=== PATIENT | male | born 1955 | race African-American/Black ===

== ENCOUNTER 2017-12-19 15:49 | Emergency (ER) | payer OTHER ==
[~2017-12-19] VITALS: Ht 180.3 cm; Wt 86.0 kg
[~2017-12-19 15:49] MED LIST: DILA100C PO; HTN MEDS; PHEN100C PO
[2017-12-19 16:04] VITALS: BP 139/77; PULSE 89; RESP 17; TEMP 97.7; O2SAT 98
[2017-12-19] MEDS ORDERED: DILA100C PO (16:08)
[2017-12-19] MEDS ORDERED: SODIUM CHLOR 0.9% 1000 ML INJ 1,000 ML IV ONE (16:26)
[2017-12-19] MEDS ORDERED: SODIUM CHLORIDE 0.9% FLUSH 10 ML FLUSH IVF PRN (16:30)
[2017-12-19 16:35] VITALS: RESP 17; O2SAT 98
--- NOTE | 2017-12-19 16:54 | PD ---
HPI Chief Complaint: Syncope/Near-Syncope Time Seen by Provider: 16:05 Travel History International Travel<30 days: No Contact w/Intl Traveler<30days: No Traveled to known affect area: No History of Present Illness HPI Patient is a 62-year-old male presenting to the emergency department for evaluation of a syncopal episode. Patient states that he was smoking marijuana while walking to the store to buy scratch off tickets, when he got to the counter he states he passed out. He reports feeling fine prior to the episode. He denied any chest pain, shortness of breath, headache, dizziness. He currently has no complaints. He states that he did not want to come here. Symptom onset is unknown, symptoms may be exacerbated by marijuana. 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) Seizures: Yes Tetanus Vaccination: > 5 Years Past Surgical History Surgical History: No Previous Surgery Coronary Artery Bypass Graft: No Social History Alcohol Use: Yes (6 BEERS DAILY) Tobacco Use: Yes (1/2 PPD) Substance Use: Yes (Marijuana, COCAINE ) Allergies-Medications (Allergen,Severity, Reaction): Coded Allergies: No Known Allergies (Verified Adverse Reaction, Unknown, 12/19/17) Reported Meds & Prescriptions Reported Meds & Active Scripts Active Reported Dilantin (Phenytoin Extended) 100 Mg Cap 100 Mg PO TID Review of Systems Except as stated in HPI: all other systems reviewed are Neg Neurologic: Positive: Syncope Physical Exam Narrative GENERAL: Thin, well-developed, alert -[place] male. Presenting in no acute distress. SKIN: Warm and dry. HEAD: Atraumatic. Normocephalic. EYES: Pupils equal and round. No scleral icterus. No injection or drainage. ENT: No nasal bleeding or discharge. Mucous membranes pink and moist. NECK: Trachea midline. No JVD. CARDIOVASCULAR: Regular rate and rhythm. RESPIRATORY: No accessory muscle use. Clear to auscultation. Breath sounds equal bilaterally. GASTROINTESTINAL: Abdomen soft, non-tender, nondistended. Hepatic and splenic margins not palpable. MUSCULOSKELETAL: Extremities without clubbing, cyanosis, or edema. No obvious deformities. NEUROLOGICAL: Awake and alert. No obvious cranial nerve deficits. Motor grossly within normal limits. Five out of 5 muscle strength in the arms and legs. Normal speech. PSYCHIATRIC: Appropriate mood and affect; insight and judgment normal. Data Data Last Documented VS Vital Signs Date Time Temp Pulse Resp B/P (MAP) Pulse Ox O2 Delivery O2 Flow Rate FiO2 12/19/17 19:17 75 18 145/84 (104) 96 Room Air 12/19/17 17:37 97.8 Orders Orders Electrocardiogram (12/19/17 16:26) Complete Blood Count With Diff (12/19/17 16:26) Comprehensive Metabolic Panel (12/19/17 16:26) Magnesium (Mg) (12/19/17 16:26) Ckmb (Isoenzyme) Profile (12/19/17 16:26) Troponin I (12/19/17 16:26) Act Partial Throm Time (Ptt) (12/19/17 16:26) Prothrombin Time / Inr (Pt) (12/19/17 16:26) Chest, Single Ap (12/19/17 16:26) Ecg Monitoring (12/19/17 16:26) Iv Access Insert/Monitor (12/19/17 16:26) Oximetry (12/19/17 16:26) Sodium Chloride 0.9% Flush (Ns Flush) (12/19/17 16:30) Sodium Chlor 0.9% 1000 Ml Inj (Ns 1000 M (12/19/17 16:26) Alcohol (Ethanol) (12/19/17 16:26) Drug Screen, Random Urine (12/19/17 16:26) Orthostatic Vital Signs (12/19/17 16:54) CKMB (12/19/17 15:00) CKMB% (12/19/17 15:00) Admit Order (Ed Use Only) (12/19/17 19:17) Sodium Chlor 0.9% 1000 Ml Inj (Ns 1000 M (12/19/17 20:00) Sodium Chloride 0.9% Flush (Ns Flush) (12/19/17 19:30) Sodium Chloride 0.9% Flush (Ns Flush) (12/19/17 21:00) Ondansetron Inj (Zofran Inj) (12/19/17 19:30) Acetaminophen (Tylenol) (12/19/17 19:30) Acetamin-Hydrocod 325-5 Mg ([place] 5-325 (12/19/17 19:30) Acetamin-Hydrocod 325-10 Mg ([place] 10-32 (12/19/17 19:30) Docusate Sodium-Senna (Candace-Colace) (12/19/17 21:00) Magnesium Hydroxide Liq (Milk Of Magnesi (12/19/17 19:30) Sennosides (Senokot) (12/19/17 19:30) Bisacodyl Supp (Dulcolax Supp) (12/19/17 19:30) Lactulose Liq (Lactulose Liq) (12/19/17 19:30) Echo 2d Comp With Doppler (12/19/17 ) Lorazepam Inj (Ativan Inj) (12/19/17 19:30) Aspirin Ec (Ecotrin Ec) (12/20/17 09:00) Pravastatin (Pravachol) (12/20/17 09:00) Phenytoin (Dilantin) (12/20/17 09:00) Labs Laboratory Tests Test 12/19/17 15:00 White Blood Count 4.6 TH/MM3 Red Blood Count 4.64 MIL/MM3 Hemoglobin 14.1 GM/DL Hematocrit 42.4 % Mean Corpuscular Volume 91.3 FL Mean Corpuscular Hemoglobin 30.4 PG Mean Corpuscular Hemoglobin Concent 33.3 % Red Cell Distribution Width 14.3 % Platelet Count 155 TH/MM3 Mean Platelet Volume 8.1 FL Neutrophils (%) (Auto) 61.2 % Lymphocytes (%) (Auto) 22.9 % Monocytes (%) (Auto) 15.5 % Eosinophils (%) (Auto) 0.0 % Basophils (%) (Auto) 0.4 % Neutrophils # (Auto) 2.8 TH/MM3 Lymphocytes # (Auto) 1.1 TH/MM3 Monocytes # (Auto) 0.7 TH/MM3 Eosinophils # (Auto) 0.0 TH/MM3 Basophils # (Auto) 0.0 TH/MM3 CBC Comment DIFF FINAL Differential Comment Prothrombin Time 11.5 SEC Prothromb Time International Ratio 1.1 RATIO Activated Partial Thromboplast Time 21.6 SEC Blood Urea Nitrogen 42 MG/DL Creatinine 2.80 MG/DL Random Glucose 128 MG/DL Total Protein 7.5 GM/DL Albumin 3.4 GM/DL Calcium Level 8.2 MG/DL Magnesium Level 1.8 MG/DL Alkaline Phosphatase 83 U/L Aspartate Amino Transf (AST/SGOT) 45 U/L Alanine Aminotransferase (ALT/SGPT) 23 U/L Total Bilirubin 0.8 MG/DL Sodium Level 128 MEQ/L Potassium Level 4.3 MEQ/L Chloride Level 92 MEQ/L Carbon Dioxide Level 25.3 MEQ/L Anion Gap 11 MEQ/L Estimat Glomerular Filtration Rate 28 ML/MIN Total Creatine Kinase 317 U/L Creatine Kinase MB 0.7 NG/ML Creatine Kinase MB % 0.2 % Troponin I 0.05 NG/ML Urine Opiates Screen NEG Urine Barbiturates Screen NEG Urine Amphetamines Screen NEG Urine Benzodiazepines Screen NEG Urine Cocaine Screen POS Urine Cannabinoids Screen POS Ethyl Alcohol Level LESS THAN 3 MG/DL MDM Medical Decision Making Medical Screen Exam Complete: Yes Emergency Medical Condition: Yes Medical Record Reviewed: Yes Interpretation(s) Last Impressions Chest X-Ray 12/19/17 1626 Signed Impressions: Service Date/Time: Tuesday, December 19, 2017 16:46 - CONCLUSION: No acute disease. Pritesh Razo MD Laboratory Tests Test 12/19/17 15:00 White Blood Count 4.6 TH/MM3 Red Blood Count 4.64 MIL/MM3 Hemoglobin 14.1 GM/DL Hematocrit 42.4 % Mean Corpuscular Volume 91.3 FL Mean Corpuscular Hemoglobin 30.4 PG Mean Corpuscular Hemoglobin Concent 33.3 % Red Cell Distribution Width 14.3 % Platelet Count 155 TH/MM3 Mean Platelet Volume 8.1 FL Neutrophils (%) (Auto) 61.2 % Lymphocytes (%) (Auto) 22.9 % Monocytes (%) (Auto) 15.5 % Eosinophils (%) (Auto) 0.0 % Basophils (%) (Auto) 0.4 % Neutrophils # (Auto) 2.8 TH/MM3 Lymphocytes # (Auto) 1.1 TH/MM3 Monocytes # (Auto) 0.7 TH/MM3 Eosinophils # (Auto) 0.0 TH/MM3 Basophils # (Auto) 0.0 TH/MM3 CBC Comment DIFF FINAL Differential Comment Prothrombin Time 11.5 SEC Prothromb Time International Ratio 1.1 RATIO Activated Partial Thromboplast Time 21.6 SEC Blood Urea Nitrogen 42 MG/DL Creatinine 2.80 MG/DL Random Glucose 128 MG/DL Total Protein 7.5 GM/DL Albumin 3.4 GM/DL Calcium Level 8.2 MG/DL Magnesium Level 1.8 MG/DL Alkaline Phosphatase 83 U/L Aspartate Amino Transf (AST/SGOT) 45 U/L Alanine Aminotransferase (ALT/SGPT) 23 U/L Total Bilirubin 0.8 MG/DL Sodium Level 128 MEQ/L Potassium Level 4.3 MEQ/L Chloride Level 92 MEQ/L Carbon Dioxide Level 25.3 MEQ/L Anion Gap 11 MEQ/L Estimat Glomerular Filtration Rate 28 ML/MIN Total Creatine Kinase 317 U/L Creatine Kinase MB 0.7 NG/ML Creatine Kinase MB % 0.2 % Troponin I 0.05 NG/ML Urine Opiates Screen NEG Urine Barbiturates Screen NEG Urine Amphetamines Screen NEG Urine Benzodiazepines Screen NEG Urine Cocaine Screen POS Urine Cannabinoids Screen POS Ethyl Alcohol Level LESS THAN 3 MG/DL Vital Signs Date Time Temp Pulse Resp B/P (MAP) Pulse Ox O2 Delivery O2 Flow Rate FiO2 12/19/17 16:05 89 17 97 Room Air 12/19/17 16:04 97.7 89 17 139/77 (97) 98 Differential Diagnosis Cardiac arrhythmia versus metabolic abnormality versus intoxication versus other Narrative Course Patient is well-appearing 62-year-old male presenting for evaluation after a witnessed syncopal episode. Vital signs are stable. Labs and imaging ordered and pending. Chest x-ray shows no acute disease CBC is unremarkable Chemistry with a sodium of 128, BUN/creatinine 42/2.8, calcium 8.2, CK 317, troponin 0 0.05 Urine drug screen is positive for cocaine and marijuana Orthostatic vital signs are negative. Patient was given a liter of IV fluids. Patient will be admitted for acute renal insufficiency, syncope, elevated troponin. Plan of care discussed with my attending physician. Dr. Pretty accepted admit. Admit orders placed. After patient was initially admitted, he stated that he did not want to stay. Patient Jung Perez has decided to leave the hospital against medical advice. This patient has the capacity to refuse care and understands the risks of leaving, including permanent disability and/or , and has had an opportunity to ask questions about his condition. The patient has been informed that he may return for care at any time, and follow up has been arranged/ advised. Diagnosis Primary Impression: Left against medical advice Admitting Information Admitting Physician Requests: Observation Kaylie Caicedo Dec 19, 2017 16:54
--- NOTE | 2017-12-19 17:11 | RADRPT ---
EXAM DATE/TIME: 12/19/2017 16:46 [facility] COMPARISON: CHEST SINGLE AP, May 27, 2015, 19:03. INDICATIONS : Shortness of breath. Syncope. MEDICAL HISTORY : None. SURGICAL HISTORY : None. ENCOUNTER: Initial ACUITY: 1 day PAIN SCORE: 6/10 LOCATION: Bilateral chest FINDINGS: A single view of the chest demonstrates the lungs to be symmetrically aerated without evidence of mas s, infiltrate or effusion. The cardiomediastinal contours are unremarkable. Osseous structures are intact. CONCLUSION: No acute disease. Pritesh Razo MD on December 19, 2017 at 17:09 Board Certified Radiologist. This report was verified electronically.
[2017-12-19 17:18] LABS: AUTOMATED NEUTROPHIL # 2.8 TH/MM3 (1.8-7.7); BASOPHIL % 0.4 % (0.0-2.0); HEMATOCRIT 42.4 % (39.0-51.0); HEMOGLOBIN 14.1 GM/DL (13.0-17.0); LYMPH % 22.9 % (9.0-44.0); LYMPHOCYTE # 1.1 TH/MM3 (1.0-4.8); MEAN CELL VOLUME 91.3 FL (80.0-100.0); MEAN CORPUSCULAR HEMOGLOBIN 30.4 PG (27.0-34.0); MEAN CORPUSCULAR HGB CONC 33.3 % (32.0-36.0); MEAN PLATELET VOLUME 8.1 FL (7.0-11.0); MONO % 15.5 % (0.0-8.0); MONOCYTE # 0.7 TH/MM3 (0-0.9); NEUT % 61.2 % (16.0-70.0); PLATELET COUNT 155 TH/MM3 (150-450); RED BLOOD COUNT 4.64 MIL/MM3 (4.50-5.90); RED CELL DISTRIBUTION WIDTH 14.3 % (11.6-17.2); WHITE BLOOD COUNT 4.6 TH/MM3 (4.0-11.0)
[2017-12-19 17:25] LABS: INTERNATIONAL NORMALIZED RATIO 1.1 RATIO; PROTHROMBIN TIME - PATIENT 11.5 SEC (9.8-11.6)
[2017-12-19 17:30] VITALS: BP_SYST 145; BP_SYST 151; BP_SYST 156; BP_DIAS 80; BP_DIAS 90; BP_DIAS 95; RESP 15; RESP 16
[2017-12-19 17:37] VITALS: BP 161/91; PULSE 80; RESP 18; TEMP 97.8; O2SAT 100
[2017-12-19 17:41] LABS: ALBUMIN 3.4 GM/DL (3.4-5.0); AST (GOT) 45 U/L (15-37); BICARBONATE 25.3 MEQ/L (21.0-32.0); BLOOD UREA NITROGEN 42 MG/DL (7-18); CALCIUM 8.2 MG/DL (8.5-10.1); CHLORIDE 92 MEQ/L (98-107); GLOMERULAR FILTRATION RATE 28 ML/MIN (>89); GLUCOSE,RANDOM 128 MG/DL (74-106); MAGNESIUM 1.8 MG/DL (1.5-2.5); SODIUM (NA) 128 MEQ/L (136-145)
[2017-12-19 17:42] LABS: ALT (GPT) 23 U/L (12-78)
[2017-12-19 17:45] LABS: ALKALINE PHOSPHATASE 83 U/L (45-117); TOTAL BILIRUBIN ADULT 0.8 MG/DL (0.2-1.0); TOTAL PROTEIN 7.5 GM/DL (6.4-8.2); TROPONIN I 0.05 NG/ML (0.02-0.05)
[2017-12-19 19:17] VITALS: BP 145/84; PULSE 75; RESP 18; O2SAT 96
--- NOTE | 2017-12-19 19:22 | PD ---
Physical Exam Date Seen by Provider: Dec 19, 2017 Narrative This patient presents to us following a syncopal episode which occurred while he was smoking some marijuana. Data Data Last Documented VS Vital Signs Date Time Temp Pulse Resp B/P (MAP) Pulse Ox O2 Delivery O2 Flow Rate FiO2 12/19/17 19:17 75 18 145/84 (104) 96 Room Air 12/19/17 17:37 97.8 Orders Orders Electrocardiogram (12/19/17 16:26) Complete Blood Count With Diff (12/19/17 16:26) Comprehensive Metabolic Panel (12/19/17 16:26) Magnesium (Mg) (12/19/17 16:26) Ckmb (Isoenzyme) Profile (12/19/17 16:26) Troponin I (12/19/17 16:26) Act Partial Throm Time (Ptt) (12/19/17 16:26) Prothrombin Time / Inr (Pt) (12/19/17 16:26) Chest, Single Ap (12/19/17 16:26) Ecg Monitoring (12/19/17 16:26) Iv Access Insert/Monitor (12/19/17 16:26) Oximetry (12/19/17 16:26) Sodium Chloride 0.9% Flush (Ns Flush) (12/19/17 16:30) Sodium Chlor 0.9% 1000 Ml Inj (Ns 1000 M (12/19/17 16:26) Alcohol (Ethanol) (12/19/17 16:26) Drug Screen, Random Urine (12/19/17 16:26) Orthostatic Vital Signs (12/19/17 16:54) CKMB (12/19/17 15:00) CKMB% (12/19/17 15:00) Admit Order (Ed Use Only) (12/19/17 19:17) Labs Laboratory Tests Test 12/19/17 15:00 White Blood Count 4.6 TH/MM3 Red Blood Count 4.64 MIL/MM3 Hemoglobin 14.1 GM/DL Hematocrit 42.4 % Mean Corpuscular Volume 91.3 FL Mean Corpuscular Hemoglobin 30.4 PG Mean Corpuscular Hemoglobin Concent 33.3 % Red Cell Distribution Width 14.3 % Platelet Count 155 TH/MM3 Mean Platelet Volume 8.1 FL Neutrophils (%) (Auto) 61.2 % Lymphocytes (%) (Auto) 22.9 % Monocytes (%) (Auto) 15.5 % Eosinophils (%) (Auto) 0.0 % Basophils (%) (Auto) 0.4 % Neutrophils # (Auto) 2.8 TH/MM3 Lymphocytes # (Auto) 1.1 TH/MM3 Monocytes # (Auto) 0.7 TH/MM3 Eosinophils # (Auto) 0.0 TH/MM3 Basophils # (Auto) 0.0 TH/MM3 CBC Comment DIFF FINAL Differential Comment Prothrombin Time 11.5 SEC Prothromb Time International Ratio 1.1 RATIO Activated Partial Thromboplast Time 21.6 SEC Blood Urea Nitrogen 42 MG/DL Creatinine 2.80 MG/DL Random Glucose 128 MG/DL Total Protein 7.5 GM/DL Albumin 3.4 GM/DL Calcium Level 8.2 MG/DL Magnesium Level 1.8 MG/DL Alkaline Phosphatase 83 U/L Aspartate Amino Transf (AST/SGOT) 45 U/L Alanine Aminotransferase (ALT/SGPT) 23 U/L Total Bilirubin 0.8 MG/DL Sodium Level 128 MEQ/L Potassium Level 4.3 MEQ/L Chloride Level 92 MEQ/L Carbon Dioxide Level 25.3 MEQ/L Anion Gap 11 MEQ/L Estimat Glomerular Filtration Rate 28 ML/MIN Total Creatine Kinase 317 U/L Creatine Kinase MB 0.7 NG/ML Creatine Kinase MB % 0.2 % Troponin I 0.05 NG/ML Urine Opiates Screen NEG Urine Barbiturates Screen NEG Urine Amphetamines Screen NEG Urine Benzodiazepines Screen NEG Urine Cocaine Screen POS Urine Cannabinoids Screen POS Ethyl Alcohol Level LESS THAN 3 MG/DL MDM Supervised Visit with MONET: Yes Narrative Course I, Dr. Schultz, have reviewed the advance practice practitioner's documentation and am in agreement, met with the patient face to face, made the diagnosis, and the medical decision making was done by me. *My assessment and Findings: EKG shows a normal sinus rhythm. CBC & BMP Diagram 12/19/17 15:00 Total Protein 7.5, Albumin 3.4, Calcium Level 8.2 L, Magnesium Level 1.8, Alkaline Phosphatase 83, Aspartate Amino Transf (AST/SGOT) 45 H, Alanine Aminotransferase (ALT/SGPT) 23, Total Bilirubin 0.8 He does not have any recent old labs for comparison. However, he does have an old creatinine which was also elevated at about 2.3. But, his BUN has doubled. The patient has been awake and alert here. Please see Kaylie Kwong NP's note for results of laboratory and radiographic evaluation, ED course, final diagnosis and disposition Sofya Schultz MD Dec 19, 2017 19:22
--- NOTE | 2017-12-19 19:23 | HHI.HP ---
[facility] Service [facility] Primary Care Physician Santosh Hankins MD Admission Diagnosis SYNCOPE, ELEVATED TROPONIN, ACUTE RENAL INSUFFICIENCY Diagnoses: Travel History International Travel<30 Days: No Contact w/Intl Traveler <30 Da: No Traveled to Known Affected Are: No Past Family Social History Allergies: Coded Allergies: No Known Allergies (Verified Adverse Reaction, Unknown, 12/19/17) Physical Exam Vital Signs Vital Signs Date Time Temp Pulse Resp B/P (MAP) Pulse Ox O2 Delivery O2 Flow Rate FiO2 12/19/17 19:17 75 18 145/84 (104) 96 Room Air 12/19/17 17:37 97.8 80 18 161/91 (114) 100 Room Air 12/19/17 17:30 80 15 145/80 (101) 74 16 151/90 (110) 156/95 (115) 12/19/17 16:35 17 98 Room Air 12/19/17 16:05 89 17 97 Room Air 12/19/17 16:04 97.7 89 17 139/77 (97) 98 Physical Exam GENERAL: This is a well-nourished, well-developed patient, in no apparent distress. SKIN: No rashes, ecchymoses or lesions. Cool and dry. HEAD: Atraumatic. Normocephalic. No temporal or scalp tenderness. EYES: Pupils equal round and reactive. Extraocular motions intact. No scleral icterus. No injection or drainage. ENT: Nose without bleeding, purulent drainage or septal hematoma. Throat without erythema, tonsillar hypertrophy or exudate. Uvula midline. Airway patent. NECK: Trachea midline. No JVD or lymphadenopathy. Supple, nontender, no meningeal signs. CARDIOVASCULAR: Regular rate and rhythm without murmurs, gallops, or rubs. RESPIRATORY: Clear to auscultation. Breath sounds equal bilaterally. No wheezes , rales, or rhonchi. GASTROINTESTINAL: Abdomen soft, non-tender, nondistended. No hepato-splenomegaly , or palpable masses. No guarding. MUSCULOSKELETAL: Extremities without clubbing, cyanosis, or edema. No joint tenderness, effusion, or edema noted. No calf tenderness. Negative Homans sign bilaterally. NEUROLOGICAL: Awake and alert. Cranial nerves II through XII intact. Motor and sensory grossly within normal limits. Five out of 5 muscle strength in all muscle groups. Normal speech. Laboratory Laboratory Tests Test 12/19/17 15:00 White Blood Count 4.6 Red Blood Count 4.64 Hemoglobin 14.1 Hematocrit 42.4 Mean Corpuscular Volume 91.3 Mean Corpuscular Hemoglobin 30.4 Mean Corpuscular Hemoglobin Concent 33.3 Red Cell Distribution Width 14.3 Platelet Count 155 Mean Platelet Volume 8.1 Neutrophils (%) (Auto) 61.2 Lymphocytes (%) (Auto) 22.9 Monocytes (%) (Auto) 15.5 Eosinophils (%) (Auto) 0.0 Basophils (%) (Auto) 0.4 Neutrophils # (Auto) 2.8 Lymphocytes # (Auto) 1.1 Monocytes # (Auto) 0.7 Eosinophils # (Auto) 0.0 Basophils # (Auto) 0.0 CBC Comment DIFF FINAL Differential Comment Prothrombin Time 11.5 Prothromb Time International Ratio 1.1 Activated Partial Thromboplast Time 21.6 Blood Urea Nitrogen 42 Creatinine 2.80 Random Glucose 128 Total Protein 7.5 Albumin 3.4 Calcium Level 8.2 Magnesium Level 1.8 Alkaline Phosphatase 83 Aspartate Amino Transf (AST/SGOT) 45 Alanine Aminotransferase (ALT/SGPT) 23 Total Bilirubin 0.8 Sodium Level 128 Potassium Level 4.3 Chloride Level 92 Carbon Dioxide Level 25.3 Anion Gap 11 Estimat Glomerular Filtration Rate 28 Total Creatine Kinase 317 Creatine Kinase MB 0.7 Creatine Kinase MB % 0.2 Troponin I 0.05 Urine Opiates Screen NEG Urine Barbiturates Screen NEG Urine Amphetamines Screen NEG Urine Benzodiazepines Screen NEG Urine Cocaine Screen POS Urine Cannabinoids Screen POS Ethyl Alcohol Level LESS THAN 3 Result Diagram: 12/19/17 1500 12/19/17 1500 Caprini VTE Risk Assessment Caprini Risk Assessment Model Point Value = 1 Point Value = 2 Point Value = 3 Point Value = 5 Age 41-60 Minor surgery BMI > 25 kg/m2 Swollen legs Varicose veins or History of unexplained or recurrent spontaneous Oral contraceptives or hormone replacement Sepsis (< 1 month) Serious lung disease, including pneumonia (< 1 month) Abnormal pulmonary function Acute myocardial infarction Congestive heart failure (< 1 month) History of inflammatory bowel disease Medical patient at bed rest Age 61-74 Arthroscopic surgery Major open surgery (> 45 min) Laparoscopic surgery (> 45 min) Malignancy Confined to bed (> 72 hours) Immobilizing plaster cast Central venous access Age >= 75 History of VTE Family history of VTE Factor V Leiden Prothrombin [id number] Lupus anticoagulant Anticardiolipin antibodies Elevated serum homocysteine Heparin-induced thrombocytopenia Other congenital or acquired thrombophilia Stroke (< 1 month) Elective arthroplasty Hip, pelvis, or leg fracture Acute spinal cord injury (< 1 month) Prophylaxis Regimen Total Risk Factor Score Risk Level Prophylaxis Regimen 0-1 Low Early ambulation 2 Moderate Order ONE of the following: *Sequential Compression Device (SCD) *Heparin 5000 units SQ BID 3-4 Higher Order ONE of the following medications: *Heparin 5000 units SQ TID *Enoxaparin/Lovenox 40 mg SQ daily (WT < 150 kg, CrCl > 30 mL/min) *Enoxaparin/Lovenox 30 mg SQ daily (WT < 150 kg, CrCl > 10-29 mL/min) *Enoxaparin/Lovenox 30 mg SQ BID (WT < 150 kg, CrCl > 30 mL/min) AND/OR *Sequential Compression Device (SCD) 5 or more Highest Order ONE of the following medications: *Heparin 5000 units SQ TID (Preferred with Epidurals) *Enoxaparin/Lovenox 40 mg SQ daily (WT < 150 kg, CrCl > 30 mL/min) *Enoxaparin/Lovenox 30 mg SQ daily (WT < 150 kg, CrCl > 10-29 mL/min) *Enoxaparin/Lovenox 30 mg SQ BID (WT < 150 kg, CrCl > 30 mL/min) AND *Sequential Compression Device (SCD) Aundrea Pretty MD Dec 19, 2017 19:23
[2017-12-19] MEDS ORDERED: ONDANSETRON HCL 4 MG/2 ML VIAL IVP PRN (19:30)
[2017-12-19] MEDS ORDERED: ACETAMINOPHEN 325 MG TAB PO PRN (19:30)
[2017-12-19] MEDS ORDERED: ACETAMINOPHEN/HYDROcodone 325 MG/5 MG TAB PO PRN (19:30)
[2017-12-19] MEDS ORDERED: ACETAMINOPHEN/HYDROcodone 325 MG/10 MG TAB PO PRN (19:30)
[2017-12-19] MEDS ORDERED: BISACODYL 10 MG SUPP RECTAL PRN (19:30)
[2017-12-19] MEDS ORDERED: LACTULOSE SYRUP 20 GM/30 ML CUP PO PRN (19:30)
[2017-12-19] MEDS ORDERED: SODIUM CHLORIDE 0.9% FLUSH 10 ML FLUSH IV FLUSH PRN (19:30)
[2017-12-19] MEDS ORDERED: MAGNESIUM HYDROXIDE SUSP 30 ML CUP PO PRN (19:30)
[2017-12-19] MEDS ORDERED: SENNOSIDES 8.6 MG TAB PO PRN (19:30)
[2017-12-19] MEDS ORDERED: LORazepam 2 MG/ML VIAL IV PUSH PRN (19:30)
[2017-12-19] MEDS ORDERED: SODIUM CHLOR 0.9% 1000 ML INJ 1,000 ML IV SCH (20:00)
[2017-12-19] MEDS ORDERED: SODIUM CHLORIDE 0.9% FLUSH 10 ML FLUSH IV FLUSH SCH (21:00)
[2017-12-19] MEDS ORDERED: DOCUSATE SODIUM 50 MG/SENNA 8.6 MG TAB PO SCH (21:00)
[2017-12-20] MEDS ORDERED: PHENYTOIN SODIUM 100 MG CAP PO SCH (09:00)
[2017-12-20] MEDS ORDERED: PRAVASTATIN SOD 40 MG TAB PO SCH (09:00)
[2017-12-20] MEDS ORDERED: ASPIRIN EC 81 MG TABEC PO SCH (09:00)
--- NOTE | 2017-12-20 14:40 | EKG ---
Date Performed: 12/19/2017 Time Performed: 16:08:44 PTAGE: 62 years EKG: Sinus rhythm WITH OCCASIONAL SUPRAVENTRICULAR PREMATURE COMPLEXES POSSIBLE LEFT ATRIAL ENLARGEMENT MARKED LEFT AX IS DEVIATION ABNORMAL ECG Since PREVIOUS TRACING , no significant change noted PREVIOUS TRACIN05/27/2015 21.22.28 DOCTOR: Tutu Rene Interpretating Date/Time 12/20/2017 14:40:16
== END 2017-12-19 19:40 | disposition left against medical advice (07) ==
LOC: NEPC 15:49 → UNDOADMOB 19:19 → NEDA 19:19 → UNDODISOB 19:40 → NEPC 19:40 → NEDA 19:40
DX: R55 Syncope and collapse (principal); Z53.21 Procedure and treatment not carried out due to patient leaving prior to being seen by health care provider; R94.31 Abnormal electrocardiogram [ECG] [EKG]; I10 Essential (primary) hypertension; F12.90 Cannabis use, unspecified, uncomplicated; Z72.0 Tobacco use; Z72.89 Other problems related to lifestyle
CPT/HCPCS: 71045; 80053; 80307; 82550; 82552; 83735; 84484; 85025; 85610; 85730; 93005; 96360; 99285; J7030

== ENCOUNTER 2017-12-24 23:23 | Inpatient (IN) | payer OTHER ==
[~2017-12-24] VITALS: Ht 180.3 cm; Wt 61.3 kg
[~2017-12-24 23:23] MED LIST changes: -HTN MEDS; -PHEN100C PO
[2017-12-24 23:38] VITALS: BP 136/93; PULSE 131; RESP 24; TEMP 98.6; O2SAT 98
--- NOTE | 2017-12-24 23:40 | PD ---
HPI Chief Complaint: Cardiac Complaint Time Seen by Provider: 23:38 Travel History International Travel<30 days: No Contact w/Intl Traveler<30days: No History of Present Illness HPI Patient is a 62-year-old male presents emergency department for evaluation nausea vomiting and diarrhea over the past 24 hours as well as left-sided flank pain generalized weakness. He was found to be in atrial fibrillation with a rate of 130 by EMS prior to arrival was given Cardizem 20 mg prior to arrival. Patient states been feeling very weak and actually fell yesterday and he thinks he hit his head. He denies any true chest pain denies any shortness of breath but does endorse some nausea vomiting and diarrhea all of which has been nonbloody and nonbilious. Symptoms are moderate, for the past 24 hours, associated signs symptoms as above , context as below. Patient recently was in this emergency department for syncopal episode with a troponin of 0.05, he was recommended for admission and ultimately signed out AGAINST MEDICAL ADVICE prior to any additional workup as an inpatient. At that time he was found to have an elevated creatinine as well. 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) Seizures: Yes Past Surgical History Coronary Artery Bypass Graft: No Social History Alcohol Use: Yes (6 BEERS DAILY) Tobacco Use: Yes (1/2 PPD) Substance Use: Yes (Marijuana, COCAINE ) Allergies-Medications (Allergen,Severity, Reaction): Coded Allergies: No Known Allergies (Verified Adverse Reaction, Unknown, 12/24/17) Reported Meds & Prescriptions Reported Meds & Active Scripts Active Reported Dilantin (Phenytoin Extended) 100 Mg Cap 100 Mg PO TID Review of Systems Except as stated in HPI: all other systems reviewed are Neg Physical Exam Narrative GENERAL: Well-developed, very thin male in no obvious distress. SKIN: Focused skin assessment warm/dry. HEAD: Atraumatic. Normocephalic. EYES: Pupils equal and round. No scleral icterus. No injection or drainage. ENT: No nasal bleeding or discharge. Mucous membranes pink and moist. NECK: Trachea midline. No JVD. CARDIOVASCULAR: Irregularly irregular and tachycardic.. No murmur appreciated. Patient has some minimal tenderness at the inferior most rib on the mid axillary line. Otherwise no palpable chest tenderness. RESPIRATORY: No accessory muscle use. Clear to auscultation. Breath sounds equal bilaterally. GASTROINTESTINAL: Abdomen soft, non-tender, nondistended. Hepatic and splenic margins not palpable. No rebound no percussive tenderness, MUSCULOSKELETAL: No obvious deformities. No clubbing. No cyanosis. No edema. NEUROLOGICAL: Awake and alert. No obvious cranial nerve deficits. Motor grossly within normal limits. Normal speech. PSYCHIATRIC: Appropriate mood and affect; insight and judgment normal. Data Data Last Documented VS Vital Signs Date Time Temp Pulse Resp B/P (MAP) Pulse Ox O2 Delivery O2 Flow Rate FiO2 12/25/17 00:07 95 20 150/92 (111) 100 Nasal Cannula 12/24/17 23:58 2.00 12/24/17 23:38 98.6 Orders Orders Vital Signs (Adult) Q15MX4,Q4H (12/24/17 23:38) Cardiac Rhythm YOSELIN.Q8H (12/24/17 23:38) Notify Dr: Other (12/24/17 23:38) Diltiazem Inj (Cardizem Inj) (12/24/17 23:45) Diltiazem Inj (Cardizem Inj) (12/25/17 00:00) Ckmb (Isoenzyme) Profile (12/24/17 23:38) Complete Blood Count With Diff (12/24/17 23:38) Comprehensive Metabolic Panel (12/24/17 23:38) Magnesium (Mg) (12/24/17 23:38) Prothrombin Time / Inr (Pt) (12/24/17 23:38) Act Partial Throm Time (Ptt) (12/24/17 23:38) Troponin I (12/24/17 23:38) Ecg Monitoring (12/24/17 23:38) Iv Access Insert/Monitor (12/24/17 23:38) Oximetry (12/24/17 23:38) Oxygen Administration (12/24/17 23:38) Sodium Chloride 0.9% Flush (Ns Flush) (12/24/17 23:45) Sodium Chlorid 0.9% 500 Ml Inj (Ns 500 M (12/24/17 23:45) Chest, Pa & Lat (12/24/17 23:38) Ct Brain W/O Iv Contrast(Rout) (12/24/17 ) Diltiazem Inj (Cardizem Inj) (12/25/17 00:00) CKMB (12/24/17 23:40) CKMB% (12/24/17 23:40) Admit Order (Ed Use Only) (12/25/17 ) Labs Laboratory Tests Test 12/24/17 23:40 White Blood Count 20.5 TH/MM3 Red Blood Count 5.37 MIL/MM3 Hemoglobin 16.2 GM/DL Hematocrit 48.5 % Mean Corpuscular Volume 90.4 FL Mean Corpuscular Hemoglobin 30.2 PG Mean Corpuscular Hemoglobin Concent 33.4 % Red Cell Distribution Width 14.3 % Platelet Count 132 TH/MM3 Mean Platelet Volume 10.6 FL Neutrophils (%) (Auto) 81.6 % Lymphocytes (%) (Auto) 9.0 % Monocytes (%) (Auto) 9.0 % Eosinophils (%) (Auto) 0.0 % Basophils (%) (Auto) 0.4 % Neutrophils # (Auto) 16.7 TH/MM3 Lymphocytes # (Auto) 1.9 TH/MM3 Monocytes # (Auto) 1.8 TH/MM3 Eosinophils # (Auto) 0.0 TH/MM3 Basophils # (Auto) 0.1 TH/MM3 CBC Comment DIFF FINAL Differential Comment Prothrombin Time 10.7 SEC Prothromb Time International Ratio 1.1 RATIO Activated Partial Thromboplast Time 25.7 SEC Blood Urea Nitrogen 84 MG/DL Creatinine 3.58 MG/DL Random Glucose 157 MG/DL Total Protein 7.2 GM/DL Albumin 2.6 GM/DL Calcium Level 8.1 MG/DL Magnesium Level 2.9 MG/DL Alkaline Phosphatase 78 U/L Aspartate Amino Transf (AST/SGOT) 61 U/L Alanine Aminotransferase (ALT/SGPT) 33 U/L Total Bilirubin 0.8 MG/DL Sodium Level 136 MEQ/L Potassium Level 3.6 MEQ/L Chloride Level 100 MEQ/L Carbon Dioxide Level 24.6 MEQ/L Anion Gap 11 MEQ/L Estimat Glomerular Filtration Rate 21 ML/MIN Total Creatine Kinase 147 U/L Creatine Kinase MB 0.8 NG/ML Troponin I 0.02 NG/ML MDM Medical Decision Making Medical Screen Exam Complete: Yes Emergency Medical Condition: Yes Differential Diagnosis Dehydration, diarrhea, nausea, vomiting, new onset atrial fibrillation, ACS, KS , syncope. Narrative Course Patient room to the emergency department, his history of cocaine abuse by prior drug screening. Found to be in new onset atrial fibrillation. After Cardizem given by EMS he did require an additional bolus here and a drip was started. Initial EKG nonischemic, troponin negative. Chest x-ray negative. His creatinine has increased since last week and is now over 3.5 it was just over 2 on his last admission. Electrolytes within normal limits as well. He was given a total of a liter of normal saline in the emergency department, going cautiously as he may have a history of congestive heart failure this does not regular follow-up with a physician. He states that he has not taken his Dilantin in over 3 weeks. His white blood cell count is elevated but I do not see any obvious source of infection other than the possible infectious diarrhea. There is no indication for antibiotics. Patient was discussed with Dr. Mcdowell for admission for atrial fibrillation RVR , dehydration, acute kidney injury in the setting of syncope. Diagnosis Primary Impression: Atrial fibrillation, new onset Additional Impressions: Atrial fibrillation with RVR ROBY (acute kidney injury) Diarrhea Cocaine abuse Admitting Information Admitting Physician Requests: Admit Condition: Stable Rony Campuzano MD Dec 24, 2017 23:40
[2017-12-24] MEDS ORDERED: SODIUM CHLORIDE 0.9% FLUSH 10 ML FLUSH IVF PRN (23:45)
[2017-12-24] MEDS ORDERED: DILTIAZEM INJ 125 MG in SODIUM CHLORIDE 0.9% INJ 100 ML IV PRN (23:45)
[2017-12-24] MEDS ORDERED: SODIUM CHLORID 0.9% 500 ML INJ 500 ML IV ONE (23:45)
[2017-12-25] VITALS (15 sets, daily range): BP systolic 95–150; BP diastolic 66–105; PULSE 66–127; RESP 18–27; TEMP 98.2–98.6; O2SAT 98–100
[2017-12-25] MEDS ORDERED: DILTIAZEM HCL 50 MG/10 ML VIAL IV PRN
[2017-12-25] MEDS ORDERED: DILTIAZEM HCL 25 MG/5 ML VIAL IV PUSH PRN
[2017-12-25 00:07] LABS: AUTOMATED NEUTROPHIL # 16.7 TH/MM3 (1.8-7.7); BASOPHIL # 0.1 TH/MM3 (0-0.2); BASOPHIL % 0.4 % (0.0-2.0); HEMATOCRIT 48.5 % (39.0-51.0); HEMOGLOBIN 16.2 GM/DL (13.0-17.0); LYMPHOCYTE # 1.9 TH/MM3 (1.0-4.8); MEAN CELL VOLUME 90.4 FL (80.0-100.0); MEAN CORPUSCULAR HEMOGLOBIN 30.2 PG (27.0-34.0); MEAN CORPUSCULAR HGB CONC 33.4 % (32.0-36.0); MEAN PLATELET VOLUME 10.6 FL (7.0-11.0); MONOCYTE # 1.8 TH/MM3 (0-0.9); NEUT % 81.6 % (16.0-70.0); PLATELET COUNT 132 TH/MM3 (150-450); RED BLOOD COUNT 5.37 MIL/MM3 (4.50-5.90); RED CELL DISTRIBUTION WIDTH 14.3 % (11.6-17.2); WHITE BLOOD COUNT 20.5 TH/MM3 (4.0-11.0)
--- NOTE | 2017-12-25 00:07 | RADRPT ---
EXAM DATE/TIME: 12/24/2017 23:48 [facility] COMPARISON: CHEST SINGLE AP, December 19, 2017, 16:46. INDICATIONS : Chest pain, shortness of breath for 2 days MEDICAL HISTORY : None. SURGICAL HISTORY : None. ENCOUNTER: Initial ACUITY: 2 days PAIN SCORE: 5/10 LOCATION: Bilateral chest FINDINGS: PA and lateral views of the chest demonstrate the lungs to be symmetrically aerated without evidence of mass, infiltrate or effusion. The cardiomediastinal contours are unremarkable. Osseous structure s are intact. CONCLUSION: No acute disease. Santosh Camp MD on December 25, 2017 at 0:04 Board Certified Radiologist. This report was verified electronically.
[2017-12-25 00:21] LABS: ALBUMIN 2.6 GM/DL (3.4-5.0); ALT (GPT) 33 U/L (12-78); AST (GOT) 61 U/L (15-37); BICARBONATE 24.6 MEQ/L (21.0-32.0); BLOOD UREA NITROGEN 84 MG/DL (7-18); CALCIUM 8.1 MG/DL (8.5-10.1); CHLORIDE 100 MEQ/L (98-107); CREATININE 3.58 MG/DL (0.60-1.30); GLOMERULAR FILTRATION RATE 21 ML/MIN (>89); GLUCOSE,RANDOM 157 MG/DL (74-106); MAGNESIUM 2.9 MG/DL (1.5-2.5); SODIUM (NA) 136 MEQ/L (136-145)
--- NOTE | 2017-12-25 00:22 | RADRPT ---
EXAM DATE/TIME: 12/24/2017 23:53 [facility] COMPARISON: No previous studies available for comparison. INDICATIONS : Cephalgia. RADIATION DOSE: 56.35 CTDIvol (mGy) MEDICAL HISTORY : Seizures. Hypertension. Substance abuse. SURGICAL HISTORY : None. ENCOUNTER: Initial ACUITY: 1 day PAIN SCALE: 8/10 LOCATION: cranial TECHNIQUE: Multiple contiguous axial images were obtained of the head. Using automated exposure control and adj ustment of the mA and/or kV according to patient size, radiation dose was kept as low as reasonably a chievable to obtain optimal diagnostic quality images. DICOM format image data is available electro nically for review and comparison. FINDINGS: There is a small focus of encephalomalacia in the posterior right frontal region at the mid convexity level. There is a larger area of encephalomalacia in the right orbitofrontal region. There is no delfino dence of intracranial mass or hemorrhage. There is nothing to suggest acute infarction. The ventricle s are symmetric and normal. Extracranial structures are benign in intact. CONCLUSION: No acute intracranial findings Santosh Camp MD on December 25, 2017 at 0:18 Board Certified Radiologist. This report was verified electronically.
[2017-12-25 00:26] LABS: ALKALINE PHOSPHATASE 78 U/L (45-117); TOTAL BILIRUBIN ADULT 0.8 MG/DL (0.2-1.0); TOTAL PROTEIN 7.2 GM/DL (6.4-8.2); TROPONIN I 0.02 NG/ML (0.02-0.05)
[2017-12-25 00:36] LABS: INTERNATIONAL NORMALIZED RATIO 1.1 RATIO; PROTHROMBIN TIME - PATIENT 10.7 SEC (9.8-11.6)
[2017-12-25] MEDS ORDERED: SODIUM CHLORIDE 0.9% FLUSH 10 ML FLUSH IV FLUSH PRN (02:00)
[2017-12-25] MEDS ORDERED: HEPARIN-D5W 25,000 U/250 ML 250 ML IV PRN (02:00)
[2017-12-25] MEDS ORDERED: HEPARIN SODIUM - IV 10,000 UNITS/10 ML VIAL IV PUSH ONE (02:00)
--- NOTE | 2017-12-25 02:10 | HHI.HP ---
[facility] No Primary Care Physician Admission Diagnosis Afib/Rvr, ROBY, left flank pain Diagnoses: Travel History International Travel<30 Days: No Contact w/Intl Traveler <30 Da: No Traveled to Known Affected Are: No History of Present Illness 62-year-old male with a past medical history significant for seizure disorder and hypertension presents to the emergency department for evaluation of weakness and chest pain. The patient presented to the emergency department on Friday for a syncopal event and then left AGAINST MEDICAL ADVICE. He reports weakness since that time. He complains of chest pain that was substernal and nonradiating earlier today that has since resolved. He is status post a fall yesterday without loss of consciousness or head trauma. The patient also endorses approximately 15 episodes of diarrhea and emesis 3. He has accompanying shortness of breath. No bilateral lower extremity edema. No abdominal pain. No lateralizing signs/symptoms Review of Systems Except as stated in HPI: all other systems reviewed are Neg Past Family Social History Past Medical History Seizure disorder Hypertension Past Surgical History None Reported Medications Reported Meds & Active Scripts Active Reported Dilantin (Phenytoin Extended) 100 Mg Cap 100 Mg PO TID Allergies: Coded Allergies: No Known Allergies (Verified Adverse Reaction, Unknown, 12/24/17) Family History Negative for CAD/DM Social History Smokes approximately one pack per day. Drinks 2-3 beers daily. Positive marijuana. Positive cocaine with last use being Friday. Negative for opiates. Physical Exam Vital Signs Vital Signs Date Time Temp Pulse Resp B/P (MAP) Pulse Ox O2 Delivery O2 Flow Rate FiO2 12/25/17 01:52 90 20 115/70 (85) 100 Room Air 12/25/17 00:07 95 20 150/92 (111) 100 Nasal Cannula 12/24/17 23:58 131 20 98 Nasal Cannula 2.00 12/24/17 23:43 99 Nasal Cannula 2.00 12/24/17 23:38 98.6 131 24 136/93 (107) 98 Physical Exam GENERAL: Thin, male, sitting up in bed SKIN: No rashes, ecchymoses or lesions. Cool and dry. HEAD: Atraumatic. Normocephalic. No temporal or scalp tenderness. EYES: Pupils equal round and reactive. Extraocular motions intact. No scleral icterus. No injection or drainage. ENT: Nose without bleeding, purulent drainage or septal hematoma. Throat without erythema, tonsillar hypertrophy or exudate. Uvula midline. Airway patent. NECK: Trachea midline. No JVD or lymphadenopathy. Supple, nontender, no meningeal signs. CARDIOVASCULAR: Tachycardic. Irregularly irregular rhythm. No murmurs/rubs/ gallops RESPIRATORY: Clear to auscultation. Breath sounds equal bilaterally. No wheezes , rales, or rhonchi. GASTROINTESTINAL: Abdomen soft, non-tender, nondistended. No hepato-splenomegaly , or palpable masses. No guarding. MUSCULOSKELETAL: Extremities without clubbing, cyanosis, or edema. No joint tenderness, effusion, or edema noted. No calf tenderness. NEUROLOGICAL: Awake and alert. Cranial nerves II through XII intact. Motor and sensory grossly within normal limits. Five out of 5 muscle strength in all muscle groups. Normal speech. Laboratory Laboratory Tests Test 12/24/17 23:40 White Blood Count 20.5 Red Blood Count 5.37 Hemoglobin 16.2 Hematocrit 48.5 Mean Corpuscular Volume 90.4 Mean Corpuscular Hemoglobin 30.2 Mean Corpuscular Hemoglobin Concent 33.4 Red Cell Distribution Width 14.3 Platelet Count 132 Mean Platelet Volume 10.6 Neutrophils (%) (Auto) 81.6 Lymphocytes (%) (Auto) 9.0 Monocytes (%) (Auto) 9.0 Eosinophils (%) (Auto) 0.0 Basophils (%) (Auto) 0.4 Neutrophils # (Auto) 16.7 Lymphocytes # (Auto) 1.9 Monocytes # (Auto) 1.8 Eosinophils # (Auto) 0.0 Basophils # (Auto) 0.1 CBC Comment DIFF FINAL Differential Comment Prothrombin Time 10.7 Prothromb Time International Ratio 1.1 Activated Partial Thromboplast Time 25.7 Blood Urea Nitrogen 84 Creatinine 3.58 Random Glucose 157 Total Protein 7.2 Albumin 2.6 Calcium Level 8.1 Magnesium Level 2.9 Alkaline Phosphatase 78 Aspartate Amino Transf (AST/SGOT) 61 Alanine Aminotransferase (ALT/SGPT) 33 Total Bilirubin 0.8 Sodium Level 136 Potassium Level 3.6 Chloride Level 100 Carbon Dioxide Level 24.6 Anion Gap 11 Estimat Glomerular Filtration Rate 21 Total Creatine Kinase 147 Creatine Kinase MB 0.8 Troponin I 0.02 Result Diagram: 12/24/17233912/24/172339 iMckeyrinmannie VTE Risk Assessment Dana VTE Risk Assessment: Mod/High Risk (score >= 2) Caprini Risk Assessment Model Point Value = 1 Point Value = 2 Point Value = 3 Point Value = 5 Age 41-60 Minor surgery BMI > 25 kg/m2 Swollen legs Varicose veins or History of unexplained or recurrent spontaneous Oral contraceptives or hormone replacement Sepsis (< 1 month) Serious lung disease, including pneumonia (< 1 month) Abnormal pulmonary function Acute myocardial infarction Congestive heart failure (< 1 month) History of inflammatory bowel disease Medical patient at bed rest Age 61-74 Arthroscopic surgery Major open surgery (> 45 min) Laparoscopic surgery (> 45 min) Malignancy Confined to bed (> 72 hours) Immobilizing plaster cast Central venous access Age >= 75 History of VTE Family history of VTE Factor V Leiden Prothrombin [id number] Lupus anticoagulant Anticardiolipin antibodies Elevated serum homocysteine Heparin-induced thrombocytopenia Other congenital or acquired thrombophilia Stroke (< 1 month) Elective arthroplasty Hip, pelvis, or leg fracture Acute spinal cord injury (< 1 month) Prophylaxis Regimen Total Risk Factor Score Risk Level Prophylaxis Regimen 0-1 Low Early ambulation 2 Moderate Order ONE of the following: *Sequential Compression Device (SCD) *Heparin 5000 units SQ BID 3-4 Higher Order ONE of the following medications: *Heparin 5000 units SQ TID *Enoxaparin/Lovenox 40 mg SQ daily (WT < 150 kg, CrCl > 30 mL/min) *Enoxaparin/Lovenox 30 mg SQ daily (WT < 150 kg, CrCl > 10-29 mL/min) *Enoxaparin/Lovenox 30 mg SQ BID (WT < 150 kg, CrCl > 30 mL/min) AND/OR *Sequential Compression Device (SCD) 5 or more Highest Order ONE of the following medications: *Heparin 5000 units SQ TID (Preferred with Epidurals) *Enoxaparin/Lovenox 40 mg SQ daily (WT < 150 kg, CrCl > 30 mL/min) *Enoxaparin/Lovenox 30 mg SQ daily (WT < 150 kg, CrCl > 10-29 mL/min) *Enoxaparin/Lovenox 30 mg SQ BID (WT < 150 kg, CrCl > 30 mL/min) AND *Sequential Compression Device (SCD) Assessment and Plan Assessment and Plan Assessment/plan: 1. New onset atrial fibrillation EKG significant for A. fib with RVR, no ST segment elevation/depressions, personally reviewed Diltiazem bolus and drip Heparin drip Echo pending Cardiology consulted, appreciate assistance 2. Chest pain Initial troponin negative EKG as above ACS rule out pending; serial troponins/EKGs 3. Diarrhea Patient reports 15 episodes of diarrhea yesterday C. difficile pending 4. Seizure disorder Dilantin level pending Continue home Dilantin 5. Hypertension She reports he has been out of his antihypertensive medication for approximately one month Monitor blood pressure Currently normotensive 6. ROBY BUN/creatinine 84/3.58, creatinine was 2.80 on 12/19/17 IV fluid hydration Monitor renal function Consider nephrology consult if renal function does not improve FEN NPO Electrolytes: Magnesium level pending. Replete prn NS at 84 cc/hr Heparin ggt Physician Certification 2 Midnight Certification Type: Admission for Inpatient Services Order for Inpatient Services The services are ordered in accordance with Medicare regulations or non- Medicare payer requirements, as applicable. In the case of services not specified as inpatient-only, they are appropriately provided as inpatient services in accordance with the 2-midnight benchmark. Estimated LOS (days): 2 2 days is the estimated time the patient will need to remain in the hospital, assuming treatment plan goals are met and no additional complications. Post-Hospital Plan: Not yet determined Sherry Mcdowell MD Dec 25, 2017 02:10
[2017-12-25] MEDS ORDERED: LORazepam 1 MG TAB PO PRN (02:15)
[2017-12-25] MEDS ORDERED: LORazepam 2 MG/ML VIAL IV PUSH PRN ×4 (02:15)
[2017-12-25] MEDS ORDERED: FLUMAZENIL 0.5 MG/5 ML VIAL IV PUSH PRN (02:15)
[2017-12-25] MEDS ORDERED: LORazepam 2 MG TAB PO PRN (02:15)
[2017-12-25] MEDS: SODIUM CHLOR 0.9% 1000 ML INJ 1,000 ML IV SCH ×2 (02:32→15:18)
[2017-12-25 03:13] LABS: HEMATOCRIT 44.9 % (39.0-51.0); HEMOGLOBIN 15.1 GM/DL (13.0-17.0); MEAN CELL VOLUME 89.2 FL (80.0-100.0); MEAN CORPUSCULAR HGB CONC 33.6 % (32.0-36.0); MEAN PLATELET VOLUME 10.2 FL (7.0-11.0); PLATELET COUNT 120 TH/MM3 (150-450); RED BLOOD COUNT 5.04 MIL/MM3 (4.50-5.90); RED CELL DISTRIBUTION WIDTH 14.5 % (11.6-17.2); WHITE BLOOD COUNT 17.7 TH/MM3 (4.0-11.0)
[2017-12-25 07:02] LABS: TROPONIN I 0.02 NG/ML (0.02-0.05)
[2017-12-25] MEDS: SODIUM CHLORIDE 0.9% FLUSH 10 ML FLUSH IV FLUSH SCH ×2 (09:00→21:49)
[2017-12-25] MEDS: MULTIVITAMINS/MINERALS THERAPEUTIC TAB PO SCH (09:40)
[2017-12-25] MEDS: THIAMINE HCL 100 MG TAB PO SCH (09:40)
[2017-12-25] MEDS: FOLIC ACID 1 MG TAB PO SCH (09:40)
[2017-12-25] MEDS: PHENYTOIN SODIUM 100 MG CAP PO SCH ×3 (09:40→18:24)
[2017-12-25] MEDS ORDERED: ASPIRIN EC 81 MG TABEC PO ONE (12:30)
--- NOTE | 2017-12-25 12:45 | MB ---
cc: Julio Vazquez MD DATE: 12/25/2017 HISTORY OF PRESENT ILLNESS: Jung is a very pleasant 62-year-old gentleman currently in the emergency room. Currently asymptomatic. He denies chest pain, fevers, chills, cough, GI or bleeding, PND, orthopnea, syncope or dizziness. However, per the ER records, the patient was admitted with a chief complaint of nausea, vomiting, diarrhea, and generalized weakness, found to be in atrial fibrillation rapid rate treated with a Cardizem bolus. PAST MEDICAL HISTORY: 1. Includes a recent admission for syncope and elevated troponin of 0.05 where the patient left AMA. 2. 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 SOCIAL HISTORY: He drinks 6 beers a day, smokes a half pack of cigarettes a day. He uses marijuana and cocaine. ALLERGIES: NONE. MEDICATIONS PRIOR TO ADMISSION: Dilantin 100 mg p.o. t.i.d., folic acid 1 mg daily, thiamine 100 mg daily, multivitamin 1 tab daily, IV heparin, IV Cardizem. PHYSICAL EXAMINATION: VITAL SIGNS: Blood pressure 127/68, pulse ranging between 90 and 113, respiratory rate 18, sats 100 percent on room air. GENERAL: He is alert and oriented x 3 in no acute distress. NECK: Supple. No JVD. No bruit. CARDIOVASCULAR: S1, S2. No murmurs, rubs or gallops. LUNGS: Clear to auscultation bilaterally. ABDOMEN: Soft, nontender, nondistended with positive bowel sounds. EXTREMITIES: No extremity edema. LABORATORY DATA: Chest x-ray shows no acute disease. Head CT, no acute intracranial findings. LABORATORY DATA: EKG on admission: Atrial fibrillation at a rate of 127 beats per minute. Poor R-wave progression, left anterior fascicular block. Second EKG shows atrial fibrillation rate of 116 beats per minute. A third EKG shows atrial fibrillation at a rate of 96 beats per minute. White count 17.7, hemoglobin 15.1, hematocrit 44.9, platelet count 120. INR is 1.1, PTT today at 9:11 a.m. is 55.2. Sodium 136, potassium 3.6, chloride 100, BUN 84, creatinine 3.58, AST 61, ALT 33. Troponin 0.02, followed by 0.02. Albumin 2.6. Toxicology: Dilantin levels less than 0.4. DIAGNOSES: 1. Atrial fibrillation with rapid ventricular response. 2. History of syncope. 3. Elevated white count. 4. Thrombocytopenia. 5. Acute renal failure. 6. Elevated liver function tests. 7. Marijuana abuse. 8. Cocaine abuse. 9. Seizure disorder. DISCUSSION: At this point in time, the patient's heart rate is marginally controlled with IV Cardizem. This can be converted to p.o. Cardizem. His CHADS-VASc score is at least 1 given his age and therefore Coumadin or novel oral anticoagulant agent is indicated; however, given his cocaine and alcohol abuse and not following medical advice, I think he would be high risk for life-threatening bleeding complications from these medications. Therefore, in the short-term, heparin is reasonable and would start him on aspirin 81 mg a day. If the patient can be abstinent from substance abuse including alcohol, marijuana, and cocaine and have adequate followup, then anticoagulation with Coumadin or a novel oral anticoagulant agent could be reconsidered. Definitely recommend abstinence from cocaine, marijuana and alcohol. Julio Vazquez MD AWC/DL , 12:24 PM , 12:44 PM
[2017-12-25 13:10] LABS: TROPONIN I 0.02 NG/ML (0.02-0.05)
--- NOTE | 2017-12-25 13:57 | EKG ---
Date Performed: 12/25/2017 Time Performed: 09:53:19 PTAGE: 62 years EKG: ATRIAL FIBRILLATION MARKED LEFT AXIS DEVIATION POSSIBLE RIGHT VENTRICULAR CONDUCTION DELAY SEPTAL MYOCARDIAL INFARCTION Since the previous tracing, no significant change noted ABNORMAL ECG PREVIOUS TRACING : 12/25/2017 05.18 DOCTOR: Christina Lee Interpretating Date/Time 12/25/2017 13:56:42
--- NOTE | 2017-12-25 14:17 | HHI.PR ---
Subjective Remarks 62-year-old male with a past medical history significant for seizure disorder and hypertension presents to the emergency department for evaluation of weakness and chest pain. The patient presented to the emergency department on Friday for a syncopal event and then left AGAINST MEDICAL ADVICE. He reports weakness since that time. He complains of chest pain that was substernal and nonradiating earlier today that has since resolved. He is status post a fall yesterday without loss of consciousness or head trauma. The patient also endorses approximately 15 episodes of diarrhea and emesis 3. He has accompanying shortness of breath. No bilateral lower extremity edema. No abdominal pain. No lateralizing signs/symptoms 4-5 PATIENT REMAINS ON CARDIZEM DRIP SEEN BY CARDIOLOGY STILL IN 130S EVEN ON CARDIZEM DRIP DW RN AND PT AM LABS NOT A GOOD CANDIDATE FOR ANTICOAGULATION- ASPIRIN PER CARDIOLOGY ONLY WILL START ON CARDIZEM 60MG PO Q6H AND TRY TO WEAN OFF DRIP Objective Vitals Vital Signs Date Time Temp Pulse Resp B/P (MAP) Pulse Ox O2 Delivery O2 Flow Rate FiO2 12/25/17 09:42 113 18 127/68 (87) 100 Room Air 12/25/17 07:09 18 98 Room Air 12/25/17 07:09 106 18 124/84 (97) 98 Room Air 12/25/17 02:33 118 110/67 12/25/17 02:03 96 20 110/67 (81) 100 12/25/17 01:52 90 20 115/70 (85) 100 Room Air 12/25/17 00:07 95 20 150/92 (111) 100 Nasal Cannula 12/24/17 23:58 131 20 98 Nasal Cannula 2.00 12/24/17 23:43 99 Nasal Cannula 2.00 12/24/17 23:38 98.6 131 24 136/93 (107) 98 I/O 12/24/17 12/24/17 12/24/17 12/25/17 12/25/17 12/25/17 07:00 15:00 23:00 07:00 15:00 23:00 Intake Total 500 ml Output Total 250 ml Balance 250 ml Intake IV Total 500 ml Output Urine Total 250 ml # Voids 1 Result Diagram: 12/25/17 0230 12/24/17 2340 Other Results Laboratory Tests Test 12/24/17 23:40 12/25/17 02:30 12/25/17 05:40 12/25/17 08:44 White Blood Count 20.5 TH/MM3 17.7 TH/MM3 Red Blood Count 5.37 MIL/MM3 5.04 MIL/MM3 Hemoglobin 16.2 GM/DL 15.1 GM/DL Hematocrit 48.5 % 44.9 % Mean Corpuscular Volume 90.4 FL 89.2 FL Mean Corpuscular Hemoglobin 30.2 PG 30.0 PG Mean Corpuscular Hemoglobin Concent 33.4 % 33.6 % Red Cell Distribution Width 14.3 % 14.5 % Platelet Count 132 TH/MM3 120 TH/MM3 Mean Platelet Volume 10.6 FL 10.2 FL Neutrophils (%) (Auto) 81.6 % Lymphocytes (%) (Auto) 9.0 % Monocytes (%) (Auto) 9.0 % Eosinophils (%) (Auto) 0.0 % Basophils (%) (Auto) 0.4 % Neutrophils # (Auto) 16.7 TH/MM3 Lymphocytes # (Auto) 1.9 TH/MM3 Monocytes # (Auto) 1.8 TH/MM3 Eosinophils # (Auto) 0.0 TH/MM3 Basophils # (Auto) 0.1 TH/MM3 CBC Comment DIFF FINAL Differential Comment Prothrombin Time 10.7 SEC Prothromb Time International Ratio 1.1 RATIO Activated Partial Thromboplast Time 25.7 SEC 26.1 SEC 64.6 SEC Blood Urea Nitrogen 84 MG/DL Creatinine 3.58 MG/DL Random Glucose 157 MG/DL Total Protein 7.2 GM/DL Albumin 2.6 GM/DL Calcium Level 8.1 MG/DL Magnesium Level 2.9 MG/DL Alkaline Phosphatase 78 U/L Aspartate Amino Transf (AST/SGOT) 61 U/L Alanine Aminotransferase (ALT/SGPT) 33 U/L Total Bilirubin 0.8 MG/DL Sodium Level 136 MEQ/L Potassium Level 3.6 MEQ/L Chloride Level 100 MEQ/L Carbon Dioxide Level 24.6 MEQ/L Anion Gap 11 MEQ/L Estimat Glomerular Filtration Rate 21 ML/MIN Total Creatine Kinase 147 U/L 137 U/L Creatine Kinase MB 0.8 NG/ML Troponin I 0.02 NG/ML 0.02 NG/ML Phenytoin (Dilantin) Level LESS THAN 0.4 MCG/ML Test 12/25/17 09:11 12/25/17 12:10 Activated Partial Thromboplast Time 55.2 SEC Total Creatine Kinase 101 U/L Troponin I 0.02 NG/ML Imaging Last Impressions Chest X-Ray 12/24/17 2338 Signed Impressions: Service Date/Time: Sunday, December 24, 2017 23:48 - CONCLUSION: No acute disease. Santosh Camp MD Head CT 12/24/17 0000 Signed Impressions: Service Date/Time: Sunday, December 24, 2017 23:53 - CONCLUSION: No acute intracranial findings Santosh Camp MD Objective Remarks GENERAL: AWAKE AND ALERT AND ORIENTED X3 TALKATIVE AND COOPERATIVE SKIN: Warm and dry. HEAD: Atraumatic. Normocephalic. EYES: Pupils equal and round. No scleral icterus. No injection or drainage. EOMI ENT: No nasal bleeding or discharge. Mucous membranes pink and moist.MIDLINE TONGUE NECK: Trachea midline. No JVD. SUPPLE CARDIOVASCULAR: IRRegular rate and rhythm. S1, S2 NO S3 OR S4 REMAINS IN AFIB ON CARDIZEM DRIP RESPIRATORY: No accessory muscle use. Clear to auscultation. Breath sounds equal bilaterally. GASTROINTESTINAL: Abdomen soft, non-tender, nondistended. Hepatic and splenic margins not palpable. MUSCULOSKELETAL: Extremities without clubbing, cyanosis, or edema. No obvious deformities. NEUROLOGICAL: Awake and alert. No obvious cranial nerve deficits. Motor grossly within normal limits. Five out of 5 muscle strength in the arms and legs. Normal speech. PSYCHIATRIC: Appropriate mood and affect; insight and judgment normal. Medications and IVs Current Medications Diltiazem HCl 125 mg/Sodium Chloride 125 ml @ 5 mls/hr TITRATE PRN IV Tachycardia Last administered on 12/25/17at 02:33; Start 12/24/17 at 23:45 Diltiazem HCl (Cardizem Inj) 25 mg UNSCH X1 PRN IV PUSH SEE LABEL COMMENTS; Start 12/25/17 at 00:00; Stop 12/25/17 at 00:00; Status DC Sodium Chloride (NS Flush) 2 ml UNSCH PRN IVF FLUSH AFTER USING IV ACCESS; Start 12/24/17 at 23:45; Stop 12/25/17 at 02:02; Status DC Sodium Chloride 500 ml @ 500 mls/hr ONCE ONCE IV Last administered on at 23:45; Start 12/24/17 at 23:45; Stop 12/25/17 at 00:44; Status DC Diltiazem HCl (Cardizem Inj) 25 mg UNSCH X1 PRN IV SEE LABEL COMMENTS Last administered on 12/25/17at 00:06; Start 12/25/17 at 00:00; Stop 12/25/17 at 00:12; Status DC Sodium Chloride (NS Flush) 2 ml UNSCH PRN IV FLUSH FLUSH AFTER USING IV ACCESS ; Start 12/25/17 at 02:00 Sodium Chloride (NS Flush) 2 ml BID IV FLUSH ; Start 12/25/17 at 09:00 Heparin Sodium (Porcine) (Heparin Inj) 5,000 units ONCE ONCE IV PUSH Last administered on 12/25/17at 02:32; Start 12/25/17 at 02:00; Stop 12/25/17 at 02:02; Status DC Heparin Sodium/ Dextrose 250 ml @ 12 mls/hr TITRATE PRN IV Coagulation Management Last administered on 12/25/17at 02:37; Start 12/25/17 at 02:00 Phenytoin (Dilantin) 100 mg TID PO Last administered on 12/25/17at 13:29; Start 12/25/17 at 09:00 Folic Acid (Folate) 1 mg DAILY PO Last administered on 12/25/17at 09:40; Start at 09:00; Stop 12/30/17 at 08:59 Thiamine HCl (Vitamin B1) 100 mg DAILY PO Last administered on 12/25/17at 09:40; Start 12/25/17 at 09:00 Multivitamins/ Minerals Therapeutic (Theragran M Tab) 1 tab DAILY PO Last administered on 12/25/17at 09:40; Start 12/25/17 at 09:00; Stop 12/30/17 at 08:59 Flumazenil (Romazicon Inj) 0.2 mg Q1M PRN IV PUSH SEE LABEL COMMENTS; Start 12/25/17 at 02:15 Lorazepam (Ativan) 1 mg Q4H PRN PO CIWA 8 - 10; Start 12/25/17 at 02:15 Lorazepam (Ativan Inj) 1 mg Q4H PRN IV PUSH CIWA 8 - 10 Last administered on 12/25/17at 04:55; Start 12/25/17 at 02:15 Lorazepam (Ativan) 2 mg Q2H PRN PO CIWA 11-14; Start 12/25/17 at 02:15 Lorazepam (Ativan Inj) 2 mg Q2H PRN IV PUSH CIWA 11-14; Start 12/25/17 at 02:15 Lorazepam (Ativan Inj) 2 mg Q1H PRN IV PUSH CIWA 15-20; Start 12/25/17 at 02:15 Lorazepam (Ativan Inj) 2 mg Q15M PRN IV PUSH CIWA > 20; Start 12/25/17 at 02:15 Sodium Chloride 1,000 ml @ 84 mls/hr [id number] IV Last administered on 12/25/17at 02:32; Start 12/25/17 at 02:15 Aspirin (Ecotrin Ec) 81 mg ONCE ONCE PO Last administered on 12/25/17at 13:29; Start 12/25/17 at 12:30; Stop 12/25/17 at 12:31; Status DC Aspirin (Ecotrin Ec) 81 mg DAILY PO ; Start 12/26/17 at 09:00 A/P Assessment and Plan 1. New onset atrial fibrillation EKG significant for A. fib with RVR, no ST segment elevation/depressions, personally reviewed Diltiazem bolus and drip Heparin drip Echo pending Cardiology consulted, appreciate assistance ON CARDIZEM DRIPS 2. Chest pain Initial troponin negative EKG as above ACS rule out pending; serial troponins/EKGs 3. Diarrhea Patient reports 15 episodes of diarrhea yesterday C. difficile pending 4. Seizure disorder Dilantin level pending Continue home Dilantin 5. Hypertension She reports he has been out of his antihypertensive medication for approximately one month Monitor blood pressure Currently normotensive 6. ROBY BUN/creatinine 84/3.58, creatinine was 2.80 on 12/19/17 IV fluid hydration Monitor renal function Consider nephrology consult if renal function does not improve FEN CARDIAC DIET Electrolytes: Magnesium level pending. Replete prn NS at 84 cc/hr Heparin ggt Discharge Planning PENDING RATE CONTROL AND CARDIAC CLEARANCE Bran Paulino DO Dec 25, 2017 14:17
[2017-12-25] MEDS: DILTIAZEM HCL 60 MG TAB PO SCH ×2 (15:17→21:49)
--- NOTE | 2017-12-25 16:52 | ECHRPT ---
Indication: Hypertensive Heart Disease CONCLUSIONS The left ventricular systolic function is low normal to mildly reduced with an estimated ejection fr action in the range of 45-50%. No definite regional wall motion abnormalities. Mild concentric left ventricular hypertrophy. Normal left ventricular size. Structurally normal mitral valve. Trace mitral valve regurgitation. Mild calcification of the aortic valve. There is trace tricuspid valve regurgitation. The estimated pulmonary arterial pressure is 33 mmHg. BP: 123 / 70 HR: 98 Rhythm: Atrial fibrillation MEASUREMENTS (Male / Female) Normal Values Technical Quality:Fair 2D ECHO LV Diastolic Diameter PLAX 3.6 cm 4.2 - 5.9 / 3.9 - 5.3 cm LV Systolic Diameter PLAX 3.0 cm IVS Diastolic Thickness 1.4 cm 0.6 - 1.0 / 0.6 - 0.9 cm LVPW Diastolic Thickness 1.3 cm 0.6 - 1.0 / 0.6 - 0.9 cm LV Relative Wall Thickness 0.8 RV Internal Dim ED PLAX 2.6 cm LVOT Diameter 2.2 cm LA Systolic Diameter LX 3.6 cm 3.0 - 4.0 / 2.7 - 3.8 cm M-MODE Aortic Root Diameter MM 3.0 cm LA Systolic Diameter MM 4.0 cm LA Ao Ratio MM 1.3 AV Cusp Separation MM 1.6 cm DOPPLER AV Peak Velocity 101.0 cm/s AV Peak Gradient 4.1 mmHg LVOT Peak Velocity 72.5 cm/s LVOT Peak Gradient 2.1 mmHg AV Area Cont Eq pk 2.7 cm MV Area PHT 4.3 cm Mitral E Point Velocity 96.1 cm/s Mitral A Point Velocity 25.1 cm/s Mitral E to A Ratio 3.8 LV E' Lateral Velocity 12.8 cm/s Mitral E to LV E' Lateral Ratio 7.5 LV E' Septal Velocity 11.4 cm/s Mitral E to LV E' Septal Ratio 8.4 TR Peak Velocity 240.0 cm/s TR Peak Gradient 23.0 mmHg Right Atrial Pressure 10.0 mmHg Pulmonary Artery Systolic Pressu 33.0 mmHg Right Ventricular Systolic Press 33.0 mmHg FINDINGS LEFT VENTRICLE The left ventricular systolic function is low normal to mildly reduced with an estimated ejection fr action in the range of 45-50%. No definite regional wall motion abnormalities. Mild concentric left ventricular hypertrophy. Normal left ventricular size. RIGHT VENTRICLE Normal right ventricular size and systolic function. LEFT ATRIUM The left atrial size is normal. RIGHT ATRIUM The right atrial size is normal. ATRIAL SEPTUM Normal atrial septal thickness without atrial level shunting by limited color doppler interrogation. AORTA The aortic root and proximal ascending aorta are normal in size on limited imaging. MITRAL VALVE Structurally normal mitral valve. Trace mitral valve regurgitation. AORTIC VALVE Mild calcification of the aortic valve. TRICUSPID VALVE Structurally normal tricuspid valve. There is trace tricuspid valve regurgitation. The estimated pulmonary arterial pressure is 33 mmHg. PULMONARY VALVE No pulmonary valve regurgitation or stenosis. VESSELS The inferior vena cava is normal in size. PERICARDIUM No pericardial effusion. Martín Odom MD (Electronically Signed) Final Date:25 December 2017 16:51
[2017-12-25] MEDS ORDERED: CHLORHEXIDINE GLUCONATE 2 % 1 PACK (2 CLOTHS)(extra cloths) TOPICAL PRN (22:00)
[2017-12-26] VITALS (18 sets, daily range): BP systolic 114–149; BP diastolic 65–97; PULSE 61–82; RESP 18–36; TEMP 97.8–98.9; O2SAT 96–100
[2017-12-26] MEDS: SODIUM CHLOR 0.9% 1000 ML INJ 1,000 ML IV SCH ×2 (02:05→14:00)
[2017-12-26] MEDS: DILTIAZEM HCL 60 MG TAB PO SCH ×4 (03:00→21:14)
[2017-12-26] MEDS: CHLORHEXIDINE GLUCONATE 2 % 1 PACK (2 CLOTHS)(taper/protocol) TOPICAL SCH (04:00)
[2017-12-26 07:16] LABS: HEMOGLOBIN 13.9 GM/DL (13.0-17.0); MEAN CELL VOLUME 90.2 FL (80.0-100.0); MEAN CORPUSCULAR HEMOGLOBIN 29.8 PG (27.0-34.0); MEAN CORPUSCULAR HGB CONC 33.1 % (32.0-36.0); MEAN PLATELET VOLUME 9.8 FL (7.0-11.0); PLATELET COUNT 154 TH/MM3 (150-450); RED BLOOD COUNT 4.66 MIL/MM3 (4.50-5.90); RED CELL DISTRIBUTION WIDTH 14.6 % (11.6-17.2); WHITE BLOOD COUNT 7.7 TH/MM3 (4.0-11.0)
[2017-12-26 07:24] LABS: AUTOMATED NEUTROPHIL # 4.7 TH/MM3 (1.8-7.7); BASOPHIL % 0.6 % (0.0-2.0); EOSINOPHIL % 0.3 % (0.0-4.0); HEMATOCRIT 41.2 % (39.0-51.0); HEMOGLOBIN 13.8 GM/DL (13.0-17.0); LYMPH % 20.8 % (9.0-44.0); LYMPHOCYTE # 1.5 TH/MM3 (1.0-4.8); MEAN CELL VOLUME 89.8 FL (80.0-100.0); MEAN CORPUSCULAR HGB CONC 33.4 % (32.0-36.0); MEAN PLATELET VOLUME 9.6 FL (7.0-11.0); MONOCYTE # 1.1 TH/MM3 (0-0.9); NEUT % 63.3 % (16.0-70.0); PLATELET COUNT 156 TH/MM3 (150-450); RED BLOOD COUNT 4.59 MIL/MM3 (4.50-5.90); RED CELL DISTRIBUTION WIDTH 14.5 % (11.6-17.2); WHITE BLOOD COUNT 7.4 TH/MM3 (4.0-11.0)
[2017-12-26 07:54] LABS: ALBUMIN 2.3 GM/DL (3.4-5.0); ALKALINE PHOSPHATASE 60 U/L (45-117); ALT (GPT) 26 U/L (12-78); AST (GOT) 38 U/L (15-37); BICARBONATE 24.2 MEQ/L (21.0-32.0); BLOOD UREA NITROGEN 44 MG/DL (7-18); CALCIUM 8.3 MG/DL (8.5-10.1); CHLORIDE 107 MEQ/L (98-107); FREE T4 2.02 NG/DL (0.76-1.46); GLOMERULAR FILTRATION RATE 46 ML/MIN (>89); GLUCOSE,RANDOM 96 MG/DL (74-106); PHOSPHORUS 2.7 MG/DL (2.5-4.9); SODIUM (NA) 140 MEQ/L (136-145); TOTAL BILIRUBIN ADULT 0.5 MG/DL (0.2-1.0)
[2017-12-26] MEDS: THIAMINE HCL 100 MG TAB PO SCH (09:07)
[2017-12-26] MEDS: SODIUM CHLORIDE 0.9% FLUSH 10 ML FLUSH IV FLUSH SCH ×2 (09:07→21:14)
[2017-12-26] MEDS: PHENYTOIN SODIUM 100 MG CAP PO SCH ×3 (09:08→17:54)
[2017-12-26] MEDS: MULTIVITAMINS/MINERALS THERAPEUTIC TAB PO SCH (09:08)
[2017-12-26] MEDS: ASPIRIN EC 81 MG TABEC PO SCH (09:08)
[2017-12-26] MEDS: FOLIC ACID 1 MG TAB PO SCH (09:08)
--- NOTE | 2017-12-26 10:22 | EKG ---
Date Performed: 12/24/2017 Time Performed: 23:32:05 PTAGE: 62 years EKG: ATRIAL FIBRILLATION WITH RAPID VENTRICULAR RESPONSE POSSIBLE RIGHT VENTRICULAR CONDUCTION D ELAY LEFT ANTERIOR FASCICULAR BLOCK ST ELEVATION, PROBABLY EARLY REPOLARIZATION ABNORMAL ECG PREVIOUS TRACING 12/19/17 Possible right ventricular hypertrophy. Since the prior tracing, the atrial fibrillation is new as are the nonspecific ST-T wave changes. DOCTOR: Christina Lee Interpretating Date/Time 12/26/2017 10:21:54
--- NOTE | 2017-12-26 10:24 | EKG ---
Date Performed: 12/25/2017 Time Performed: 05:18:54 PTAGE: 62 years EKG: ATRIAL FIBRILLATION WITH RAPID VENTRICULAR RESPONSE POSSIBLE RIGHT VENTRICULAR CONDUCTION D ELAY ABNORMAL RHYTHM ECG PREVIOUS TRACING 12/24/17 Possible left ventricular hypertrophy by voltage criteria. Since the m ost recent tracing, there has been no significant serial change. DOCTOR: Christina Lee Interpretating Date/Time 12/26/2017 10:22:31
[2017-12-26] MEDS ORDERED: ZOLPIDEM TARTRATE 5 MG TAB PO PRN (16:15)
[2017-12-26] MEDS ORDERED: SENNOSIDES 8.6 MG TAB PO PRN (16:15)
[2017-12-26] MEDS ORDERED: METOCLOPRAMIDE HCL 10 MG/2 ML VIAL IV PUSH PRN (16:15)
[2017-12-26] MEDS ORDERED: ACETAMINOPHEN 325 MG TAB PO PRN ×2 (16:15)
[2017-12-26] MEDS ORDERED: BISACODYL 10 MG SUPP RECTAL PRN (16:15)
[2017-12-26] MEDS ORDERED: ONDANSETRON HCL 4 MG/2 ML VIAL IVP PRN (16:15)
[2017-12-26] MEDS ORDERED: oxyCODONE/ACETAMINOPHEN 10 MG/325 MG TAB PO PRN (16:15)
[2017-12-26] MEDS ORDERED: MAGNESIUM HYDROXIDE SUSP 30 ML CUP PO PRN (16:15)
[2017-12-26] MEDS ORDERED: NALOXONE HCL 0.4 MG/ML AMP IV PUSH PRN (16:15)
[2017-12-26] MEDS ORDERED: LACTULOSE SYRUP 20 GM/30 ML CUP PO PRN (16:15)
[2017-12-26] MEDS ORDERED: oxyCODONE/ACETAMINOPHEN 5 MG/325 MG TAB PO PRN (16:15)
[2017-12-26] MEDS ORDERED: MORPHINE SULFATE 2 MG/ML SYRINGE IV PUSH PRN ×2 (16:15)
--- NOTE | 2017-12-26 16:18 | HHI.PR ---
Subjective Remarks 62-year-old male with a past medical history significant for seizure disorder and hypertension presents to the emergency department for evaluation of weakness and chest pain. The patient presented to the emergency department on Friday for a syncopal event and then left AGAINST MEDICAL ADVICE. He reports weakness since that time. He complains of chest pain that was substernal and nonradiating earlier today that has since resolved. He is status post a fall yesterday without loss of consciousness or head trauma. The patient also endorses approximately 15 episodes of diarrhea and emesis 3. He has accompanying shortness of breath. No bilateral lower extremity edema. No abdominal pain. No lateralizing signs/symptoms 4-5 PATIENT REMAINS ON CARDIZEM DRIP SEEN BY CARDIOLOGY STILL IN 130S EVEN ON CARDIZEM DRIP DW RN AND PT AM LABS NOT A GOOD CANDIDATE FOR ANTICOAGULATION- ASPIRIN PER CARDIOLOGY ONLY WILL START ON CARDIZEM 60MG PO Q6H AND TRY TO WEAN OFF DRIP 4-6 PATIENT CONVERTED TO SINUS RHYTHM AT 5PM YESTERDAY COMPLAINS OF LEFT FLANK PAIN WILL GET HEPATITIS PANEL AND UA WITH C AND S MOVE OUT OF ICU SWITCH TO [place] HOLD HEPARIN DRIP US OF ABDOMEN DW RN AND PT Objective Vitals Vital Signs Date Time Temp Pulse Resp B/P (MAP) Pulse Ox O2 Delivery O2 Flow Rate FiO2 12/26/17 14:30 69 12/26/17 14:00 74 12/26/17 12:00 68 12/26/17 12:00 98.9 68 19 128/79 (95) 100 12/26/17 10:30 67 18 127/78 (94) 99 12/26/17 10:30 67 12/26/17 10:00 71 20 130/83 (99) 99 12/26/17 10:00 71 12/26/17 09:31 79 36 149/97 (114) 96 12/26/17 09:31 79 12/26/17 09:00 82 25 138/93 (108) 98 12/26/17 09:00 82 12/26/17 08:30 62 32 132/75 (94) 99 12/26/17 08:30 62 12/26/17 08:00 66 12/26/17 08:00 97.8 66 24 114/67 (83) 99 12/26/17 06:00 61 12/26/17 04:00 65 22 140/65 (90) 100 4/6/18 04:00 63 12/26/17 03:00 66 20 98 12/26/17 02:00 66 28 98 12/26/17 01:00 67 25 99 12/26/17 00:03 72 26 133/81 (98) 99 12/26/17 00:00 66 12/25/17 22:00 69 27 131/79 (96) 100 12/25/17 22:00 71 12/25/17 21:00 77 26 118/69 (85) 100 12/25/17 20:00 98.2 66 23 102/69 (80) 98 12/25/17 20:00 67 12/25/17 18:00 67 12/25/17 18:00 98.4 67 20 104/66 (79) 98 12/25/17 17:00 71 12/25/17 16:30 108 12/25/17 16:30 108 27 95/70 (78) 98 I/O 12/25/17 12/25/17 12/25/17 12/26/17 12/26/17 12/26/17 07:00 15:00 23:00 07:00 15:00 23:00 Intake Total 500 ml 480 ml 2663 ml Output Total 250 ml 500 ml 575 ml 800 ml Balance 250 ml -500 ml -95 ml 1863 ml Intake Oral 480 ml 600 ml IV Total 500 ml 2063 ml Output Urine Total 250 ml 500 ml 575 ml 800 ml # Voids 1 1 # Bowel Movements 0 0 Result Diagram: 12/26/17 0605 12/26/17 06 Other Results Laboratory Tests Test 12/24/17 23:40 12/25/17 02:30 12/25/17 05:40 12/25/17 08:44 White Blood Count 20.5 TH/MM3 17.7 TH/MM3 Red Blood Count 5.37 MIL/MM3 5.04 MIL/MM3 Hemoglobin 16.2 GM/DL 15.1 GM/DL Hematocrit 48.5 % 44.9 % Mean Corpuscular Volume 90.4 FL 89.2 FL Mean Corpuscular Hemoglobin 30.2 PG 30.0 PG Mean Corpuscular Hemoglobin Concent 33.4 % 33.6 % Red Cell Distribution Width 14.3 % 14.5 % Platelet Count 132 TH/MM3 120 TH/MM3 Mean Platelet Volume 10.6 FL 10.2 FL Neutrophils (%) (Auto) 81.6 % Lymphocytes (%) (Auto) 9.0 % Monocytes (%) (Auto) 9.0 % Eosinophils (%) (Auto) 0.0 % Basophils (%) (Auto) 0.4 % Neutrophils # (Auto) 16.7 TH/MM3 Lymphocytes # (Auto) 1.9 TH/MM3 Monocytes # (Auto) 1.8 TH/MM3 Eosinophils # (Auto) 0.0 TH/MM3 Basophils # (Auto) 0.1 TH/MM3 CBC Comment DIFF FINAL Differential Comment Prothrombin Time 10.7 SEC Prothromb Time International Ratio 1.1 RATIO Activated Partial Thromboplast Time 25.7 SEC 26.1 SEC 64.6 SEC Blood Urea Nitrogen 84 MG/DL Creatinine 3.58 MG/DL Random Glucose 157 MG/DL Total Protein 7.2 GM/DL Albumin 2.6 GM/DL Calcium Level 8.1 MG/DL Magnesium Level 2.9 MG/DL Alkaline Phosphatase 78 U/L Aspartate Amino Transf (AST/SGOT) 61 U/L Alanine Aminotransferase (ALT/SGPT) 33 U/L Total Bilirubin 0.8 MG/DL Sodium Level 136 MEQ/L Potassium Level 3.6 MEQ/L Chloride Level 100 MEQ/L Carbon Dioxide Level 24.6 MEQ/L Anion Gap 11 MEQ/L Estimat Glomerular Filtration Rate 21 ML/MIN Total Creatine Kinase 147 U/L 137 U/L Creatine Kinase MB 0.8 NG/ML Troponin I 0.02 NG/ML 0.02 NG/ML Phenytoin (Dilantin) Level LESS THAN 0.4 MCG/ML Test 12/25/17 09:11 12/25/17 12:10 12/25/17 15:00 12/25/17 16:54 Activated Partial Thromboplast Time 55.2 SEC 50.6 SEC Total Creatine Kinase 101 U/L Troponin I 0.02 NG/ML Nasal Screen MRSA (PCR) MRSA NOT DETECTED Test 12/25/17 23:57 12/26/17 06:05 Activated Partial Thromboplast Time 48.5 SEC White Blood Count 7.4 TH/MM3 Red Blood Count 4.59 MIL/MM3 Hemoglobin 13.8 GM/DL Hematocrit 41.2 % Mean Corpuscular Volume 89.8 FL Mean Corpuscular Hemoglobin 30.0 PG Mean Corpuscular Hemoglobin Concent 33.4 % Red Cell Distribution Width 14.5 % Platelet Count 156 TH/MM3 Mean Platelet Volume 9.6 FL Neutrophils (%) (Auto) 63.3 % Lymphocytes (%) (Auto) 20.8 % Monocytes (%) (Auto) 15.0 % Eosinophils (%) (Auto) 0.3 % Basophils (%) (Auto) 0.6 % Neutrophils # (Auto) 4.7 TH/MM3 Lymphocytes # (Auto) 1.5 TH/MM3 Monocytes # (Auto) 1.1 TH/MM3 Eosinophils # (Auto) 0.0 TH/MM3 Basophils # (Auto) 0.0 TH/MM3 CBC Comment DIFF FINAL Differential Comment Blood Urea Nitrogen 44 MG/DL Creatinine 1.80 MG/DL Random Glucose 96 MG/DL Total Protein 6.0 GM/DL Albumin 2.3 GM/DL Calcium Level 8.3 MG/DL Phosphorus Level 2.7 MG/DL Magnesium Level 2.0 MG/DL Alkaline Phosphatase 60 U/L Aspartate Amino Transf (AST/SGOT) 38 U/L Alanine Aminotransferase (ALT/SGPT) 26 U/L Total Bilirubin 0.5 MG/DL Sodium Level 140 MEQ/L Potassium Level 4.0 MEQ/L Chloride Level 107 MEQ/L Carbon Dioxide Level 24.2 MEQ/L Anion Gap 9 MEQ/L Estimat Glomerular Filtration Rate 46 ML/MIN Free Thyroxine 2.02 NG/DL Thyroid Stimulating Hormone 3rd Gen 0.846 uIU/ML Imaging Last Impressions Chest X-Ray 12/24/17 2338 Signed Impressions: Service Date/Time: Sunday, December 24, 2017 23:48 - CONCLUSION: No acute disease. Santosh Camp MD Head CT 12/24/17 0000 Signed Impressions: Service Date/Time: Sunday, December 24, 2017 23:53 - CONCLUSION: No acute intracranial findings Santosh Camp MD Objective Remarks GENERAL: AWAKE AND ALERT AND ORIENTED X3 TALKATIVE AND COOPERATIVE SKIN: Warm and dry. HEAD: Atraumatic. Normocephalic. EYES: Pupils equal and round. No scleral icterus. No injection or drainage. EOMI ENT: No nasal bleeding or discharge. Mucous membranes pink and moist.MIDLINE TONGUE NECK: Trachea midline. No JVD. SUPPLE CARDIOVASCULAR: Regular rate and rhythm. S1, S2 NO S3 OR S4 REMAINS IN SINUS RHYTHM OFF CARDIZEM DRIP ON PO CARDIZEM RESPIRATORY: No accessory muscle use. Clear to auscultation. Breath sounds equal bilaterally. GASTROINTESTINAL: Abdomen soft, non-tender, nondistended. Hepatic and splenic margins not palpable. MUSCULOSKELETAL: Extremities without clubbing, cyanosis, or edema. No obvious deformities. NEUROLOGICAL: Awake and alert. No obvious cranial nerve deficits. Motor grossly within normal limits. Five out of 5 muscle strength in the arms and legs. Normal speech. PSYCHIATRIC: Appropriate mood and affect; insight and judgment normal. Procedures NONE Medications and IVs Current Medications Diltiazem HCl 125 mg/Sodium Chloride 125 ml @ 5 mls/hr TITRATE PRN IV Tachycardia Last administered on 12/25/17at 02:33; Start 12/24/17 at 23:45 Diltiazem HCl (Cardizem Inj) 25 mg UNSCH X1 PRN IV PUSH SEE LABEL COMMENTS; Start 12/25/17 at 00:00; Stop 12/25/17 at 00:00; Status DC Sodium Chloride (NS Flush) 2 ml UNSCH PRN IVF FLUSH AFTER USING IV ACCESS; Start 12/24/17 at 23:45; Stop 12/25/17 at 02:02; Status DC Sodium Chloride 500 ml @ 500 mls/hr ONCE ONCE IV Last administered on at 23:45; Start 12/24/17 at 23:45; Stop 12/25/17 at 00:44; Status DC Diltiazem HCl (Cardizem Inj) 25 mg UNSCH X1 PRN IV SEE LABEL COMMENTS Last administered on 12/25/17at 00:06; Start 12/25/17 at 00:00; Stop 12/25/17 at 00:12; Status DC Sodium Chloride (NS Flush) 2 ml UNSCH PRN IV FLUSH FLUSH AFTER USING IV ACCESS ; Start 12/25/17 at 02:00 Sodium Chloride (NS Flush) 2 ml BID IV FLUSH Last administered on 12/26/17at 09: 07; Start 12/25/17 at 09:00 Heparin Sodium (Porcine) (Heparin Inj) 5,000 units ONCE ONCE IV PUSH Last administered on 12/25/17at 02:32; Start 12/25/17 at 02:00; Stop 12/25/17 at 02:02; Status DC Heparin Sodium/ Dextrose 250 ml @ 12 mls/hr TITRATE PRN IV Coagulation Management Last administered on 12/25/17 02:37; Start 12/25/17 at 02:00 Phenytoin (Dilantin) 100 mg TID PO Last administered on 12/26/17at 14:52; Start 12/25/17 at 09:00 Folic Acid (Folate) 1 mg DAILY PO Last administered on 12/26/17 09:08; Start at 09:00; Stop 12/30/17 at 08:59 Thiamine HCl (Vitamin B1) 100 mg DAILY PO Last administered on 12/26/17 09:07; Start 12/25/17 at 09:00 Multivitamins/ Minerals Therapeutic (Theragran M Tab) 1 tab DAILY PO Last administered on 12/26/17 09:08; Start 12/25/17 at 09:00; Stop 12/30/17 at 08:59 Flumazenil (Romazicon Inj) 0.2 mg Q1M PRN IV PUSH SEE LABEL COMMENTS; Start 12/25/17 at 02:15 Lorazepam (Ativan) 1 mg Q4H PRN PO CIWA 8 - 10; Start 12/25/17 at 02:15 Lorazepam (Ativan Inj) 1 mg Q4H PRN IV PUSH CIWA 8 - 10 Last administered on 12/25/17at 04:55; Start 12/25/17 at 02:15 Lorazepam (Ativan) 2 mg Q2H PRN PO CIWA 11-14; Start 12/25/17 at 02:15 Lorazepam (Ativan Inj) 2 mg Q2H PRN IV PUSH CIWA 11-14; Start 12/25/17 at 02:15 Lorazepam (Ativan Inj) 2 mg Q1H PRN IV PUSH CIWA 15-20; Start 12/25/17 at 02:15 Lorazepam (Ativan Inj) 2 mg Q15M PRN IV PUSH CIWA > 20; Start 12/25/17 at 02:15 Sodium Chloride 1,000 ml @ 84 mls/hr [id number] IV Last administered on 12/26/17at 14:00; Start 12/25/17 at 02:15 Aspirin (Ecotrin Ec) 81 mg ONCE ONCE PO Last administered on 12/25/17at 13:29; Start 12/25/17 at 12:30; Stop 12/25/17 at 12:31; Status DC Aspirin (Ecotrin Ec) 81 mg DAILY PO Last administered on 12/26/17at 09:08; Start 12/26/17 at 09:00 Diltiazem HCl (Cardizem) 60 mg Q6H PO Last administered on 12/26/17at 14:52; Start 12/25/17 at 15:00 Miscellaneous Information Patient in critical care unit? Ass... [id number] Last administered on 12/25/17at 22:00; Start 12/25/17 at 22:00 Chlorhexidine Gluconate (Chlorhexidine 2% Cloth) 3 pack DAILY@04 TOPICAL Last administered on 12/26/17at 04:00; Start 12/26/17 at 04:00; Stop 12/30/17 at 04:01 Chlorhexidine Gluconate (Chlorhexidine 2% Cloth) 3 pack UNSCH PRN TOPICAL HYGIENIC CARE; Start 12/25/17 at 22:00; Stop 12/30/17 at 21:51 A/P Assessment and Plan 1. New onset atrial fibrillation EKG significant for A. fib with RVR, no ST segment elevation/depressions, personally reviewed--CONVERTED TO NS RHYTHM Diltiazem bolus and drip- OFF CARDIZEM DRIP Heparin drip-- DC DRIP Echo pending Cardiology consulted, appreciate assistance OFF CARDIZEM DRIPS 2. Chest pain Initial troponin negative EKG as above ACS rule out pending; serial troponins/EKGs 3. Diarrhea Patient reports 15 episodes of diarrhea yesterday C. difficile pending 4. Seizure disorder Dilantin level pending Continue home Dilantin 5. Hypertension She reports he has been out of his antihypertensive medication for approximately one month Monitor blood pressure Currently normotensive 6. ROBY BUN/creatinine 84/3.58, creatinine was 2.80 on 12/19/17 TO 1.7 IV fluid hydration Monitor renal function Consider nephrology consult if renal function does not improve FEN CARDIAC DIET Electrolytes: Magnesium level pending. Replete prn NS at 84 cc/hr Heparin ggt Discharge Planning PENDING RATE CONTROL AND CARDIAC CLEARANCE Bran Paulino DO Dec 26, 2017 16:18
--- NOTE | 2017-12-26 16:30 | PD.CARD.PN ---
Subjective Subjective Remarks alert in nad Objective Medications Current Medications Medications (Trade) Dose Ordered Sig/Jack Route Start Time Stop Time Status Last Admin Diltiazem HCl 125 mg/Sodium Chloride 125 ml @ 5 mls/hr TITRATE PRN IV 12/24/17 23:45 Future Hold 12/25/17 02:33 (NS Flush) 2 ml UNSCH PRN IV FLUSH 12/25/17 02:00 (NS Flush) 2 ml BID IV FLUSH 12/25/17 09:00 12/26/17 09:07 Heparin Sodium/ Dextrose 250 ml @ 12 mls/hr TITRATE PRN IV 12/25/17 02:00 Future Hold 12/25/17 02:37 (Dilantin) 100 mg TID PO 12/25/17 09:00 12/26/17 14:52 (Folate) 1 mg DAILY PO 12/25/17 09:00 12/30/17 08:59 12/26/17 09:08 (Vitamin B1) 100 mg DAILY PO 12/25/17 09:00 12/26/17 09:07 (Theragran M Tab) 1 tab DAILY PO 12/25/17 09:00 12/30/17 08:59 12/26/17 09:08 (Romazicon Inj) 0.2 mg Q1M PRN IV PUSH 12/25/17 02:15 (Ativan) 1 mg Q4H PRN PO 12/25/17 02:15 (Ativan Inj) 1 mg Q4H PRN IV PUSH 12/25/17 02:15 12/25/17 04:55 (Ativan) 2 mg Q2H PRN PO 12/25/17 02:15 (Ativan Inj) 2 mg Q2H PRN IV PUSH 12/25/17 02:15 (Ativan Inj) 2 mg Q1H PRN IV PUSH 12/25/17 02:15 (Ativan Inj) 2 mg Q15M PRN IV PUSH 12/25/17 02:15 Sodium Chloride 1,000 ml @ 84 mls/hr [id number] IV 12/25/17 02:15 12/26/17 14:00 (Ecotrin Ec) 81 mg DAILY PO 12/26/17 09:00 12/26/17 09:08 (Cardizem) 60 mg Q6H PO 4/5/18 15:00 12/26/17 14:52 Miscellaneous Information Patient in critical care unit? Ass... Q361D .XX 12/25/17 22:00 12/25/17 22:00 (Chlorhexidine 2% Cloth) 3 pack DAILY@04 TOPICAL 12/26/17 04:00 12/30/17 04:01 12/26/17 04:00 (Chlorhexidine 2% Cloth) 3 pack UNSCH PRN TOPICAL 12/25/17 22:00 12/30/17 21:51 (Tylenol) 650 mg Q4H PRN PO 12/26/17 16:15 (Zofran Inj) 4 mg Q6H PRN IVP 12/26/17 16:15 (Reglan Inj) 5 mg Q6H PRN IV PUSH 12/26/17 16:15 (Ambien) 5 mg HS PRN PO 12/26/17 16:15 (Lovenox Inj) 30 mg Q24H SQ 12/26/17 17:00 UNV (Tylenol) 650 mg Q6H PRN PO 12/26/17 16:15 UNV (Percocet 5-325 Mg) 1 tab Q6H PRN PO 12/26/17 16:15 UNV (Percocet 10-325 Mg) 1 tab Q6H PRN PO 12/26/17 16:15 UNV (Morphine Inj) 2 mg Q3H PRN IV PUSH 12/26/17 16:15 UNV (Morphine Inj) 4 mg Q3H PRN IV PUSH 12/26/17 16:15 UNV (Narcan Inj) 0.4 mg UNSCH PRN IV PUSH 12/26/17 16:15 UNV (Candace-Colace) 1 tab BID PO 12/26/17 21:00 UNV (Milk Of Magnesia Liq) 30 ml Q12H PRN PO 12/26/17 16:15 UNV (Senokot) 17.2 mg Q12H PRN PO 12/26/17 16:15 UNV (Dulcolax Supp) 10 mg DAILY PRN RECTAL 12/26/17 16:15 UNV (Lactulose Liq) 30 ml DAILY PRN PO 12/26/17 16:15 UNV Vital Signs / I&O Vital Signs Date Time Temp Pulse Resp B/P (MAP) Pulse Ox O2 Delivery O2 Flow Rate FiO2 12/26/17 14:30 69 12/26/17 14:00 74 12/26/17 12:00 68 12/26/17 12:00 98.9 68 19 128/79 (95) 100 12/26/17 10:30 67 18 127/78 (94) 99 12/26/17 10:30 67 12/26/17 10:00 71 20 130/83 (99) 99 12/26/17 10:00 71 12/26/17 09:31 79 36 149/97 (114) 96 12/26/17 09:31 79 12/26/17 09:00 82 25 138/93 (108) 98 12/26/17 09:00 82 12/26/17 08:30 62 32 132/75 (94) 99 12/26/17 08:30 62 12/26/17 08:00 66 12/26/17 08:00 97.8 66 24 114/67 (83) 99 12/26/17 06:00 61 12/26/17 04:00 65 22 140/65 (90) 100 12/26/17 04:00 63 12/26/17 03:00 66 20 98 12/26/17 02:00 66 28 98 12/26/17 01:00 67 25 99 12/26/17 00:03 72 26 133/81 (98) 99 12/26/17 00:00 66 12/25/17 22:00 69 27 131/79 (96) 100 12/25/17 22:00 71 12/25/17 21:00 77 26 118/69 (85) 100 12/25/17 20:00 98.2 66 23 102/69 (80) 98 12/25/17 20:00 67 12/25/17 18:00 67 12/25/17 18:00 98.4 67 20 104/66 (79) 98 12/25/17 17:00 71 12/25/17 16:30 108 12/25/17 16:30 108 27 95/70 (78) 98 I/O 12/25/17 12/25/17 12/25/17 12/26/17 12/26/17 12/26/17 07:00 15:00 23:00 07:00 15:00 23:00 Intake Total 500 ml 480 ml 2663 ml Output Total 250 ml 500 ml 575 ml 800 ml Balance 250 ml -500 ml -95 ml 1863 ml Intake Oral 480 ml 600 ml IV Total 500 ml 2063 ml Output Urine Total 250 ml 500 ml 575 ml 800 ml # Voids 1 1 # Bowel Movements 0 0 Laboratory GENERAL: SKIN: Warm and dry. HEAD: Normocephalic. EYES: No scleral icterus. No injection or drainage. NECK: Supple, trachea midline. No JVD or lymphadenopathy. CARDIOVASCULAR: Regular rate and rhythm without murmurs, gallops, or rubs. RESPIRATORY: Breath sounds equal bilaterally. No accessory muscle use. GASTROINTESTINAL: Abdomen soft, non-tender, nondistended. MUSCULOSKELETAL: No cyanosis, or edema. BACK: Nontender without obvious deformity. No CVA tenderness. Laboratory Tests Test 12/25/17 16:54 12/25/17 23:57 12/26/17 06:05 Activated Partial Thromboplast Time 50.6 SEC 48.5 SEC White Blood Count 7.4 TH/MM3 Red Blood Count 4.59 MIL/MM3 Hemoglobin 13.8 GM/DL Hematocrit 41.2 % Mean Corpuscular Volume 89.8 FL Mean Corpuscular Hemoglobin 30.0 PG Mean Corpuscular Hemoglobin Concent 33.4 % Red Cell Distribution Width 14.5 % Platelet Count 156 TH/MM3 Mean Platelet Volume 9.6 FL Neutrophils (%) (Auto) 63.3 % Lymphocytes (%) (Auto) 20.8 % Monocytes (%) (Auto) 15.0 % Eosinophils (%) (Auto) 0.3 % Basophils (%) (Auto) 0.6 % Neutrophils # (Auto) 4.7 TH/MM3 Lymphocytes # (Auto) 1.5 TH/MM3 Monocytes # (Auto) 1.1 TH/MM3 Eosinophils # (Auto) 0.0 TH/MM3 Basophils # (Auto) 0.0 TH/MM3 CBC Comment DIFF FINAL Differential Comment Blood Urea Nitrogen 44 MG/DL Creatinine 1.80 MG/DL Random Glucose 96 MG/DL Total Protein 6.0 GM/DL Albumin 2.3 GM/DL Calcium Level 8.3 MG/DL Phosphorus Level 2.7 MG/DL Magnesium Level 2.0 MG/DL Alkaline Phosphatase 60 U/L Aspartate Amino Transf (AST/SGOT) 38 U/L Alanine Aminotransferase (ALT/SGPT) 26 U/L Total Bilirubin 0.5 MG/DL Sodium Level 140 MEQ/L Potassium Level 4.0 MEQ/L Chloride Level 107 MEQ/L Carbon Dioxide Level 24.2 MEQ/L Anion Gap 9 MEQ/L Estimat Glomerular Filtration Rate 46 ML/MIN Free Thyroxine 2.02 NG/DL Thyroid Stimulating Hormone 3rd Gen 0.846 uIU/ML Assessment and Plan Problem List: (1) Substance abuse ICD Codes: F19.10 - Substance abuse Status: Acute (2) Alcohol abuse ICD Codes: F10.10 - Alcohol abuse Status: Acute (3) Tobacco dependency ICD Codes: F17.200 - Tobacco dependency Status: Acute (4) Atrial fibrillation with RVR ICD Codes: I48.91 - Unspecified atrial fibrillation Status: Acute Assessment and Plan 1.) Afib - rate controlled, on po cardizem and aspirin, not a good candidate for coumadin or noac due to polysubstance abuse, noncompliance, fall risk Julio Vazquez MD Dec 26, 2017 16:29
[2017-12-26 16:42] LABS: HEMOGLOBIN A1C 5.9 % (4.3-6.0)
[2017-12-26] MEDS ORDERED: ENOXAPARIN SODIUM 30 MG/0.3 ML SYRINGE SQ SCH (17:00)
[2017-12-26 20:40] LABS: BACTERIA, URINE MANY /hpf; BILIRUBIN, URINE NEG (NEG); BLOOD, URINE LARGE (NEG); GLUCOSE,URINE NEG (NEG); KETONE, URINE NEG (NEG); NITRITE,URINE POS (NEG); SQUAMOUS EPITHELIAL CELL URINE 1 /hpf (0-5); URINE COLOR YELLOW (YELLW/STRAW); URINE LEUKOCYTE ESTERASE LARGE (NEG); WHITE BLOOD CELL CLUMPS OCC
[2017-12-26] MEDS: DOCUSATE SODIUM 50 MG/SENNA 8.6 MG TAB PO SCH (21:00)
[2017-12-27] VITALS: BP 137/77; PULSE 72; PULSE 77; RESP 19; TEMP 98.1; O2SAT 100
[2017-12-27] MEDS: CHLORHEXIDINE GLUCONATE 2 % 1 PACK (2 CLOTHS)(taper/protocol) TOPICAL SCH (00:38)
[2017-12-27] MEDS: SODIUM CHLOR 0.9% 1000 ML INJ 1,000 ML IV SCH ×2 (01:48→13:50)
[2017-12-27 04:00] VITALS: BP 134/79; PULSE 72; PULSE 76; RESP 20; TEMP 98.4; O2SAT 99
[2017-12-27] MEDS: DILTIAZEM HCL 60 MG TAB PO SCH ×2 (04:02→10:48)
[2017-12-27 06:04] LABS: AUTOMATED NEUTROPHIL # 4.9 TH/MM3 (1.8-7.7); BASOPHIL # 0.1 TH/MM3 (0-0.2); EOSINOPHIL % 0.3 % (0.0-4.0); HEMATOCRIT 41.7 % (39.0-51.0); HEMOGLOBIN 14.1 GM/DL (13.0-17.0); LYMPH % 20.4 % (9.0-44.0); LYMPHOCYTE # 1.7 TH/MM3 (1.0-4.8); MEAN CORPUSCULAR HEMOGLOBIN 30.4 PG (27.0-34.0); MEAN CORPUSCULAR HGB CONC 33.7 % (32.0-36.0); MEAN PLATELET VOLUME 9.1 FL (7.0-11.0); MONO % 19.1 % (0.0-8.0); MONOCYTE # 1.6 TH/MM3 (0-0.9); NEUT % 59.2 % (16.0-70.0); PLATELET COUNT 171 TH/MM3 (150-450); RED BLOOD COUNT 4.63 MIL/MM3 (4.50-5.90); RED CELL DISTRIBUTION WIDTH 14.4 % (11.6-17.2); WHITE BLOOD COUNT 8.3 TH/MM3 (4.0-11.0)
[2017-12-27 06:30] LABS: ALBUMIN 2.3 GM/DL (3.4-5.0); ALT (GPT) 33 U/L (12-78); AST (GOT) 45 U/L (15-37); BICARBONATE 22.8 MEQ/L (21.0-32.0); BLOOD UREA NITROGEN 25 MG/DL (7-18); CALCIUM 8.3 MG/DL (8.5-10.1); CHLORIDE 107 MEQ/L (98-107); CREATININE 1.43 MG/DL (0.60-1.30); GLOMERULAR FILTRATION RATE 61 ML/MIN (>89); GLUCOSE,RANDOM 96 MG/DL (74-106); MAGNESIUM 1.6 MG/DL (1.5-2.5); SODIUM (NA) 137 MEQ/L (136-145)
[2017-12-27 06:33] LABS: ALKALINE PHOSPHATASE 78 U/L (45-117); PHOSPHORUS 2.6 MG/DL (2.5-4.9); TOTAL BILIRUBIN ADULT 0.5 MG/DL (0.2-1.0); TOTAL PROTEIN 6.3 GM/DL (6.4-8.2)
[2017-12-27 08:00] VITALS: BP 133/85; PULSE 75; PULSE 78; RESP 18; TEMP 98.4; O2SAT 100
[2017-12-27] MEDS: SODIUM CHLORIDE 0.9% FLUSH 10 ML FLUSH IV FLUSH SCH (09:00)
--- NOTE | 2017-12-27 09:45 | PD.CARD.PN ---
Subjective Subjective Remarks alert in nad Objective Medications Current Medications Medications (Trade) Dose Ordered Sig/Jack Route Start Time Stop Time Status Last Admin Diltiazem HCl 125 mg/Sodium Chloride 125 ml @ 5 mls/hr TITRATE PRN IV 12/24/17 23:45 Future Hold 12/25/17 02:33 (NS Flush) 2 ml UNSCH PRN IV FLUSH 12/25/17 02:00 (NS Flush) 2 ml BID IV FLUSH 12/25/17 09:00 12/26/17 21:14 Heparin Sodium/ Dextrose 250 ml @ 12 mls/hr TITRATE PRN IV 12/25/17 02:00 Future Hold 12/25/17 02:37 (Dilantin) 100 mg TID PO 12/25/17 09:00 12/26/17 17:54 (Folate) 1 mg DAILY PO 12/25/17 09:00 12/30/17 08:59 12/26/17 09:08 (Vitamin B1) 100 mg DAILY PO 12/25/17 09:00 12/26/17 09:07 (Theragran M Tab) 1 tab DAILY PO 12/25/17 09:00 12/30/17 08:59 12/26/17 09:08 (Romazicon Inj) 0.2 mg Q1M PRN IV PUSH 12/25/17 02:15 (Ativan) 1 mg Q4H PRN PO 12/25/17 02:15 (Ativan Inj) 1 mg Q4H PRN IV PUSH 12/25/17 02:15 12/25/17 04:55 (Ativan) 2 mg Q2H PRN PO 12/25/17 02:15 (Ativan Inj) 2 mg Q2H PRN IV PUSH 12/25/17 02:15 (Ativan Inj) 2 mg Q1H PRN IV PUSH 12/25/17 02:15 (Ativan Inj) 2 mg Q15M PRN IV PUSH 12/25/17 02:15 Sodium Chloride 1,000 ml @ 84 mls/hr [id number] IV 12/25/17 02:15 12/27/17 01:48 (Ecotrin Ec) 81 mg DAILY PO 12/26/17 09:00 12/26/17 09:08 (Cardizem) 60 mg Q6H PO 4/5/18 15:00 12/27/17 04:02 Miscellaneous Information Patient in critical care unit? Ass... Q361D .XX 12/25/17 22:00 12/25/17 22:00 (Chlorhexidine 2% Cloth) 3 pack DAILY@04 TOPICAL 12/26/17 04:00 12/30/17 04:01 12/26/17 04:00 (Chlorhexidine 2% Cloth) 3 pack UNSCH PRN TOPICAL 12/25/17 22:00 12/30/17 21:51 (Tylenol) 650 mg Q4H PRN PO 12/26/17 16:15 (Zofran Inj) 4 mg Q6H PRN IVP 12/26/17 16:15 (Reglan Inj) 5 mg Q6H PRN IV PUSH 12/26/17 16:15 (Ambien) 5 mg HS PRN PO 12/26/17 16:15 (Lovenox Inj) 30 mg Q24H SQ 12/26/17 17:00 12/26/17 17:54 (Tylenol) 650 mg Q6H PRN PO 12/26/17 16:15 (Percocet 5-325 Mg) 1 tab Q6H PRN PO 12/26/17 16:15 (Percocet 10-325 Mg) 1 tab Q6H PRN PO 12/26/17 16:15 (Morphine Inj) 2 mg Q3H PRN IV PUSH 12/26/17 16:15 (Morphine Inj) 4 mg Q3H PRN IV PUSH 12/26/17 16:15 (Narcan Inj) 0.4 mg UNSCH PRN IV PUSH 12/26/17 16:15 (Candace-Colace) 1 tab BID PO 12/26/17 21:00 (Milk Of Magnesia Liq) 30 ml Q12H PRN PO 12/26/17 16:15 (Senokot) 17.2 mg Q12H PRN PO 12/26/17 16:15 (Dulcolax Supp) 10 mg DAILY PRN RECTAL 12/26/17 16:15 (Lactulose Liq) 30 ml DAILY PRN PO 12/26/17 16:15 Vital Signs / I&O Vital Signs Date Time Temp Pulse Resp B/P (MAP) Pulse Ox O2 Delivery O2 Flow Rate FiO2 12/27/17 08:00 98.4 78 18 133/85 (101) 100 12/27/17 04:00 98.4 76 20 134/79 (97) 99 12/27/17 04:00 72 12/27/17 00:00 72 12/27/17 00:00 98.1 77 19 137/77 (97) 100 12/26/17 20:00 75 12/26/17 20:00 98.6 81 20 144/89 (107) 99 12/26/17 18:30 98.4 70 20 143/81 (101) 99 12/26/17 14:30 69 12/26/17 14:00 74 12/26/17 12:00 68 12/26/17 12:00 98.9 68 19 128/79 (95) 100 12/26/17 10:30 67 18 127/78 (94) 99 12/26/17 10:30 67 12/26/17 10:00 71 20 130/83 (99) 99 12/26/17 10:00 71 I/O 12/26/17 12/26/17 12/26/17 12/27/17 12/27/17 12/27/17 07:00 15:00 23:00 07:00 15:00 23:00 Intake Total 2663 ml 1962 ml Output Total 800 ml 600 ml Balance 1863 ml 1362 ml Intake Oral 600 ml 640 ml IV Total 2063 ml 1322 ml Output Urine Total 800 ml 600 ml # Bowel Movements 0 Physical Exam GENERAL: SKIN: Warm and dry. HEAD: Normocephalic. EYES: No scleral icterus. No injection or drainage. NECK: Supple, trachea midline. No JVD or lymphadenopathy. CARDIOVASCULAR: Regular rate and rhythm without murmurs, gallops, or rubs. RESPIRATORY: Breath sounds equal bilaterally. No accessory muscle use. GASTROINTESTINAL: Abdomen soft, non-tender, nondistended. MUSCULOSKELETAL: No cyanosis, or edema. BACK: Nontender without obvious deformity. No CVA tenderness. Laboratory Laboratory Tests Test 12/26/17 17:32 12/26/17 20:00 12/27/17 05:40 Hepatitis A IgM Antibody NONREACTIVE Hepatitis B Surface Antigen NONREACTIVE Hepatitis B Core IgM Antibody NONREACTIVE Hepatitis C IgG Antibody REACTIVE Urine Color YELLOW Urine Turbidity HAZY Urine pH 7.0 Urine Specific [place] 1.019 Urine Protein 30 mg/dL Urine Glucose (UA) NEG mg/dL Urine Ketones NEG mg/dL Urine Occult Blood LARGE Urine Nitrite POS Urine Bilirubin NEG Urine Urobilinogen LESS THAN 2.0 MG/DL Urine Leukocyte Esterase LARGE Urine RBC 1 /hpf Urine WBC 35 /hpf Urine WBC Clumps OCC Urine Squamous Epithelial Cells 1 /hpf Urine Bacteria MANY /hpf Microscopic Urinalysis Comment CULTURE INDICATED White Blood Count 8.3 TH/MM3 Red Blood Count 4.63 MIL/MM3 Hemoglobin 14.1 GM/DL Hematocrit 41.7 % Mean Corpuscular Volume 90.0 FL Mean Corpuscular Hemoglobin 30.4 PG Mean Corpuscular Hemoglobin Concent 33.7 % Red Cell Distribution Width 14.4 % Platelet Count 171 TH/MM3 Mean Platelet Volume 9.1 FL Neutrophils (%) (Auto) 59.2 % Lymphocytes (%) (Auto) 20.4 % Monocytes (%) (Auto) 19.1 % Eosinophils (%) (Auto) 0.3 % Basophils (%) (Auto) 1.0 % Neutrophils # (Auto) 4.9 TH/MM3 Lymphocytes # (Auto) 1.7 TH/MM3 Monocytes # (Auto) 1.6 TH/MM3 Eosinophils # (Auto) 0.0 TH/MM3 Basophils # (Auto) 0.1 TH/MM3 CBC Comment DIFF FINAL Differential Comment Blood Urea Nitrogen 25 MG/DL Creatinine 1.43 MG/DL Random Glucose 96 MG/DL Total Protein 6.3 GM/DL Albumin 2.3 GM/DL Calcium Level 8.3 MG/DL Phosphorus Level 2.6 MG/DL Magnesium Level 1.6 MG/DL Alkaline Phosphatase 78 U/L Aspartate Amino Transf (AST/SGOT) 45 U/L Alanine Aminotransferase (ALT/SGPT) 33 U/L Total Bilirubin 0.5 MG/DL Sodium Level 137 MEQ/L Potassium Level 4.0 MEQ/L Chloride Level 107 MEQ/L Carbon Dioxide Level 22.8 MEQ/L Anion Gap 7 MEQ/L Estimat Glomerular Filtration Rate 61 ML/MIN Assessment and Plan Problem List: (1) Substance abuse ICD Codes: F19.10 - Substance abuse Status: Acute (2) Alcohol abuse ICD Codes: F10.10 - Alcohol abuse Status: Acute (3) Tobacco dependency ICD Codes: F17.200 - Tobacco dependency Status: Acute (4) Atrial fibrillation with RVR ICD Codes: I48.91 - Unspecified atrial fibrillation Status: Acute Assessment and Plan 1.) Afib - rate controlled, on po cardizem and aspirin, not a good candidate for coumadin or noac due to polysubstance abuse, noncompliance, fall risk Julio Vazquez MD Dec 27, 2017 09:45
[2017-12-27] MEDS: THIAMINE HCL 100 MG TAB PO SCH (10:47)
[2017-12-27] MEDS: PHENYTOIN SODIUM 100 MG CAP PO SCH ×2 (10:47→13:00)
[2017-12-27] MEDS: MULTIVITAMINS/MINERALS THERAPEUTIC TAB PO SCH (10:48)
[2017-12-27] MEDS: ASPIRIN EC 81 MG TABEC PO SCH (10:48)
[2017-12-27] MEDS: DOCUSATE SODIUM 50 MG/SENNA 8.6 MG TAB PO SCH (10:48)
[2017-12-27] MEDS: FOLIC ACID 1 MG TAB PO SCH (10:48)
[2017-12-27] MEDS ORDERED: CARD240C6 PO (11:32)
[2017-12-27] MEDS ORDERED: FOLI1TAB6 PO (11:32)
[2017-12-27] MEDS ORDERED: THIA100 PO (11:32)
[2017-12-27] MEDS ORDERED: ECASA81 PO (11:32)
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
[2017-12-27 12:00] VITALS: BP 159/97; PULSE 83; PULSE 93; RESP 18; TEMP 98.9; O2SAT 100
--- NOTE | 2017-12-27 14:12 | HHI.DS ---
Discharge Summary Admission Date Dec 25, 2017 at 01:19 Discharge Date: Dec 27, 2017 Admitting Diagnosis Afib/Rvr, ROBY, left flank pain (1) Alcohol abuse ICD Code: F10.10 - Alcohol abuse Status: Acute (2) Substance abuse ICD Code: F19.10 - Substance abuse Status: Acute (3) Atrial fibrillation, new onset ICD Code: I48.91 - Unspecified atrial fibrillation Status: Acute (4) Atypical chest pain ICD Code: R07.89 - Atypical chest pain Status: Acute Procedures NONE Brief History - From Admission 62-year-old male with a past medical history significant for seizure disorder and hypertension presents to the emergency department for evaluation of weakness and chest pain. The patient presented to the emergency department on Friday for a syncopal event and then left AGAINST MEDICAL ADVICE. He reports weakness since that time. He complains of chest pain that was substernal and nonradiating earlier today that has since resolved. He is status post a fall yesterday without loss of consciousness or head trauma. The patient also endorses approximately 15 episodes of diarrhea and emesis 3. He has accompanying shortness of breath. No bilateral lower extremity edema. No abdominal pain. No lateralizing signs/symptoms CBC/BMP: 12/27/17 0540 12/27/17 0540 Significant Findings Laboratory Tests Test 12/24/17 23:40 12/25/17 02:30 12/25/17 05:40 12/25/17 08:44 White Blood Count 20.5 TH/MM3 (4.0-11.0) 17.7 TH/MM3 (4.0-11.0) Platelet Count 132 TH/MM3 (150-450) 120 TH/MM3 (150-450) Neutrophils (%) (Auto) 81.6 % (16.0-70.0) Monocytes (%) (Auto) 9.0 % (0.0-8.0) Neutrophils # (Auto) 16.7 TH/MM3 (1.8-7.7) Monocytes # (Auto) 1.8 TH/MM3 (0-0.9) Blood Urea Nitrogen 84 MG/DL (7-18) Creatinine 3.58 MG/DL (0.60-1.30) Random Glucose 157 MG/DL (74-106) Albumin 2.6 GM/DL (3.4-5.0) Calcium Level 8.1 MG/DL (8.5-10.1) Magnesium Level 2.9 MG/DL (1.5-2.5) Aspartate Amino Transf (AST/SGOT) 61 U/L (15-37) Estimat Glomerular Filtration Rate 21 ML/MIN (>89) Phenytoin (Dilantin) Level LESS THAN 0.4 MCG/ML Activated Partial Thromboplast Time 64.6 SEC (24.3-30.1) Test 12/25/17 09:11 12/25/17 12:10 12/25/17 15:00 12/25/17 16:54 Activated Partial Thromboplast Time 55.2 SEC (24.3-30.1) 50.6 SEC (24.3-30.1) Test 12/25/17 23:57 12/26/17 06:05 12/26/17 17:32 12/26/17 20:00 Activated Partial Thromboplast Time 48.5 SEC (24.3-30.1) Monocytes (%) (Auto) 15.0 % (0.0-8.0) Monocytes # (Auto) 1.1 TH/MM3 (0-0.9) Blood Urea Nitrogen 44 MG/DL (7-18) Creatinine 1.80 MG/DL (0.60-1.30) Total Protein 6.0 GM/DL (6.4-8.2) Albumin 2.3 GM/DL (3.4-5.0) Calcium Level 8.3 MG/DL (8.5-10.1) Aspartate Amino Transf (AST/SGOT) 38 U/L (15-37) Estimat Glomerular Filtration Rate 46 ML/MIN (>89) Free Thyroxine 2.02 NG/DL (0.76-1.46) Hepatitis C IgG Antibody REACTIVE (NONREACTIVE) Urine Turbidity HAZY (CLEAR) Urine Protein 30 mg/dL (NEG-TRACE) Urine Occult Blood LARGE (NEG) Urine Nitrite POS (NEG) Urine Leukocyte Esterase LARGE (NEG) Urine WBC 35 /hpf (0-5) Urine WBC Clumps OCC (NONE) Urine Bacteria MANY /hpf (NONE) Test 12/27/17 05:40 Monocytes (%) (Auto) 19.1 % (0.0-8.0) Monocytes # (Auto) 1.6 TH/MM3 (0-0.9) Blood Urea Nitrogen 25 MG/DL (7-18) Creatinine 1.43 MG/DL (0.60-1.30) Total Protein 6.3 GM/DL (6.4-8.2) Albumin 2.3 GM/DL (3.4-5.0) Calcium Level 8.3 MG/DL (8.5-10.1) Aspartate Amino Transf (AST/SGOT) 45 U/L (15-37) Estimat Glomerular Filtration Rate 61 ML/MIN (>89) PE at Discharge GENERAL: AWAKE AND ALERT AND ORIENTED X3 TALKATIVE AND COOPERATIVE SKIN: Warm and dry. HEAD: Atraumatic. Normocephalic. EYES: Pupils equal and round. No scleral icterus. No injection or drainage. EOMI ENT: No nasal bleeding or discharge. Mucous membranes pink and moist.MIDLINE TONGUE NECK: Trachea midline. No JVD. SUPPLE CARDIOVASCULAR: Regular rate and rhythm. S1, S2 NO S3 OR S4 REMAINS IN SINUS RHYTHM OFF CARDIZEM DRIP ON PO CARDIZEM RESPIRATORY: No accessory muscle use. Clear to auscultation. Breath sounds equal bilaterally. GASTROINTESTINAL: Abdomen soft, non-tender, nondistended. Hepatic and splenic margins not palpable. MUSCULOSKELETAL: Extremities without clubbing, cyanosis, or edema. No obvious deformities. NEUROLOGICAL: Awake and alert. No obvious cranial nerve deficits. Motor grossly within normal limits. Five out of 5 muscle strength in the arms and legs. Normal speech. PSYCHIATRIC: Appropriate mood and affect; insight and judgment normal. Hospital Course 62 years old male admitted for new onset atrial fibrillation with RVR chest pain , patient started on Cardizem drip heparin drip 2D echo cardiology consultation , rhythm converted, cardiology cleared patient to be discharged on aspirin due to noncompliance and suspect of IVDU, Cardizem p.o., [id number] encounter performed with the patient on discharge day, as well as physical exam, summary of hospitalization course and postdischarge plan has been D/W the patient. D/W nurse D/W medical case worker. Discharge medications reviewed and printed and signed, post discharge follow up visit with PCP and other specialist as well as Brief hospital course and discharge summary has been placed. Pt Condition on Discharge: Fair Discharge Disposition: Discharge Home Discharge Time: > 30 minutes Discharge Instructions DIET: Follow Instructions for: Heart Healthy Diet Activities you can perform: Weight Bearing as Nima Follow up Referrals: Cardiology - 1 Week with Julio Vazquez MD New Medications: Diltiazem CD 24 HR (Cardizem CD 24 HR) 240 Mg Caper 240 MG PO DAILY for afib, #30 CAP [address] (Aspirin DR) 81 Mg Tabdr 81 MG PO DAILY for afib, #30 TAB Folic Acid (Folic Acid) 1 Mg Tablet 1 MG PO DAILY for ., #30 TAB Thiamine HCl (Gnp Vitamin B-1) 100 Mg Tab 100 MG PO DAILY for ., #30 TAB Continued Medications: Phenytoin Extended (Dilantin) 100 Mg Cap 100 MG PO TID for Control Seizures, #90 CAP 0 Refills Swathi Cruz MD Dec 27, 2017 14:12
[2017-12-27] MEDS ORDERED: PHEN100C PO (14:43)
== END 2017-12-27 15:12 | disposition home or self-care (01) | DRG 309 ==
LOC: NEPE 23:23 → NEDA 12-25 01:19 → NEDH 12-25 05:19 → HIMN 12-25 14:40 → N04B 12-26 18:18
PROVIDERS: ADMIT Hospitalist; ATTEND Hospitalist
DX: I48.91 Unspecified atrial fibrillation (principal); N17.9 Acute kidney failure, unspecified; D69.6 Thrombocytopenia, unspecified; I11.0 Hypertensive heart disease with heart failure; I50.9 Heart failure, unspecified; E86.0 Dehydration; R55 Syncope and collapse; R19.7 Diarrhea, unspecified; G40.909 Epilepsy, unspecified, not intractable, without status epilepticus; F10.10 Alcohol abuse, uncomplicated; F12.10 Cannabis abuse, uncomplicated; F14.10 Cocaine abuse, uncomplicated; F17.210 Nicotine dependence, cigarettes, uncomplicated; F32.9 Major depressive disorder, single episode, unspecified; Z87.820 Personal history of traumatic brain injury; Z91.19 Patient's noncompliance with other medical treatment and regimen
CPT/HCPCS: 70450; 71046; 76775; 80053; 80074; 80185; 81001; 82550; 82552; 83036; 83735; 84100; 84439; 84443; 84484; 85025; 85027; 85610; 85730; 87086; 87641; 93005; 93306; 96361; 96374; J1644; J1650; J2060; J7030; J7040

== ENCOUNTER 2018-01-01 12:32 | Emergency (ER) | payer OTHER ==
[~2018-01-01] VITALS: Ht 180.3 cm; Wt 60.0 kg
[~2018-01-01 12:32] MED LIST changes: +CARD240C6 PO; +ECASA81 PO; +FOLI1TAB6 PO; +PHEN100C PO; +THIA100 PO
[2018-01-01 13:29] VITALS: BP 153/80; PULSE 69; RESP 16; TEMP 98.4; O2SAT 99
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
[2018-01-01] MEDS ORDERED: NAPR375T4 PO (16:42)
[2018-01-01] MEDS ORDERED: CYCL10TA PO (16:42)
== END 2018-01-01 17:05 | disposition home or self-care (01) ==
LOC: NEPD 12:32
DX: M54.5 Low back pain (principal); R56.9 Unspecified convulsions; F17.200 Nicotine dependence, unspecified, uncomplicated
CPT/HCPCS: 72131; 99283